=== PATIENT | female | born 1970 | race Caucasian/White ===

== ENCOUNTER 2019-06-24 11:39 | Inpatient (IN) ==
[2019-06-24 13:55] LABS: Basophils # (auto) 0.03 K/uL (0-0.2); Basophils % (auto) 0.4 %; Eosinophils # (auto) 0.46 K/uL (0-0.5); Eosinophils % (auto) 5.5 %; Hematocrit (blood only) 34.9 % (37-47); Hemoglobin 10.5 g/dL (12.0-16.0); Immature Granulocytes # (auto) 0.01 K/uL (0.00-0.02); Immature Granulocytes % (auto) 0.1 %; Lymphocytes # (auto) 1.53 K/uL (1.2-3.4); Lymphocytes % (auto) 18.3 %; Mean Corpuscular Hemoglobin 22.9 pg (25-34); Mean Corpuscular Hgb Conc 30.1 g/dL (32-36); Mean Corpuscular Volume 76.2 fL (80-100); Mean Platelet Volume 10.5 fL (7.4-10.4); Monocytes # (auto) 0.45 K/uL (0.11-0.59); Monocytes % (auto) 5.4 %; Neutrophils # (auto) 5.87 K/uL (1.4-6.5); Neutrophils % (auto) 70.3 %; Platelet Count 291 K/uL (130-400); RDW Standard Deviation 50.5 fL (36.4-46.3); Red Blood Count 4.58 M/uL (4.2-5.4); White Blood Count 8.35 K/uL (4.8-10.8)
[2019-06-24 14:18] LABS: Acetaminophen < 2 ug/ml (10-30); Alanine Aminotransferase 73 U/L (12-78); Albumin Level 3.9 gm/dl (3.4-5.0); Aspartate Aminotransferase 28 U/L (15-37); BUN Creatinine Ratio 13.6 (10-20); Blood Urea Nitrogen 12 mg/dl (7-18); Calcium 9.7 mg/dl (8.5-10.1); Carbon Dioxide 25 mmol/L (21-32); Chloride 106 mmol/L (98-107); Est GFR (Non-African American) 79.3; Glucose 81 mg/dl (70-99); Potassium 4.1 mmol/L (3.5-5.1); Salicylate < 1.7 mg/dl (2.8-20); Sodium 137 mmol/L (136-145)
[2019-06-24 14:20] LABS: Appearance Urine Clear (Clear); Bacteria Urine Automated Negative (Negative); Bilirubin Urine Negative (Negative); Blood Urine Negative (Negative); Color Urine Yellow; Epithelial Cell Urine Auto >30 /lpf (0-5); Glucose Urine UA Negative (Negative); Ketones Urine Negative (Negative); Leukocyte Esterase Urine Trace (Negative); Nitrite Urine Negative (Negative); Protein Urine Negative (Negative); RBC Urine Automated 0-4 /hpf (0-4); Specific Gravity Urine 1.008 (1.000-1.030); Urobilinogen Urine Negative (Negative); pH Urine 5.5 (4.5-7.5)
[2019-06-24 14:28] LABS: Albumin Globulin Ratio 0.7 (0.9-2); Alkaline Phosphatase 72 U/L (45-117); Bilirubin,Total 0.4 mg/dl (0.2-1); Globulin 5.3 gm/dl (2.5-4.0); Thyroid Stimulating Hormone 0.987 uIu/ml (0.300-4.500); Total Protein 9.2 gm/dl (6.4-8.2)
[2019-06-24 14:28] LABS: Amphetamines+Metham, Urine Neg (Neg); Barbiturates, Urine Neg (Neg); Benzodiazepine, Urine Neg (Neg); Cocaine, Urine Neg (Neg); MDMA (Ecstacy), Urine Neg (Neg); Methadone, Urine Neg (Neg); Opiate, Urine Neg (Neg); Phencyclidine, Urine Neg (Neg)
--- NOTE | 2019-06-24 15:30 | CT Scan Report ---
CT head/brain wo con CLINICAL HISTORY: 49 years-old Female presenting with ams. TECHNIQUE: Multidetector CT imaging of the head was performed without the use of intravenous contrast . IV contrast: None. One or more dose lowering techniques were used consistent with the principles of ALARA (as low as reasonably achievable), including automatic exposure control, mA or kV adjustment t o individual patient size, and/or use of iterative reconstruction. COMPARISON: None. CT DOSE (mGy.cm): The estimated cumulative dose is 537.48 mGy.cm. FINDINGS: Stave Block Roller topogram: Unremarkable. Ventricles and sulci normal in size. No hemorrhage. Brain parenchyma normal in appearance with preser pop pulido-white differentiation. No acute territorial infarct. No mass effect or midline shift. No ext ra-axial fluid collection. Paranasal sinuses and mastoid air cells clear. Calvarium intact. IMPRESSION: 1. No acute intracranial abnormality. ACT 112: Negative or not required by law. Electronically signed by: Simon Dodd M.D. 06/24/2019 3:28 PM
[2019-06-24 15:56] LABS: Pregnancy Test, Serum Negative (Negative)
--- NOTE | 2019-06-24 18:18 | Emergency Department Note ---
Entered by Jillian Miguel acting as a scribe for Denis Cabral History of Present Illness General Chief complaint: Mental Health Evaluation Stated complaint: mhid Time Seen by Provider: 06/24/19 12:49 Source: patient and other (psych case briefer) History of Present Illness Onset (ago): day(s) (today) Location: head Pain Consistency: + other (episode) Quality: + other (mental health) Associated symptoms: + denies other symptoms (recent falls, being assaulting, suicidal ideations, homicidal ideations, feeling depressed, feeling anxious, change in sleep, feeling guilty, changes in energy level, changes in appetite ) and + other (loss of interest in things that previously gave her dylan, difficulty concentrating) The patient is a 49 year old female who presents to the Emergency Room for a mental health evaluation. Per the psych case briefer, the patient was found by a property director of restaurants petting their horse. She states that when the patient was tara roached, she was crying one minute and laughing the next. She reports that the property director of restaurants called police, but the patient ended up leaving before they arrived. She states that the patient was then found by police [place] [address] She states that when they approached her, they spent an hour with her just trying to get her name. She reports that she kept making statements to the officers such as the world would be better off without me and my family would be better off if they were . The psych case briefer notes that she has a history of depression due to her recently losing her stable job. She states that the patient and her family recently moved back from [facility] as well. She states that she told her that it was a huge mistake in marrying him and told her 10 year old son that he was her biggest mistake of her life. The psych case briefer states that she is here on a warrant as police are concerned about her behaviors. She notes that the family is concerned as well and wants her to get treatment, but thinks she will deny. The patient states that today she was just out for a walk when police came up and started harassing her. She states that she believes that they did it because she was [place], but they want to make it private as there are too many cars that drive too fast on it. She states that they are just trying to protect farm lands and are doing it by having her be removed from this community farm. The patient states that she just wants to help the animals and that 0 is the [place] of love. She notes that 0 could also be the start of a new beginning or part of a tennis match. The patient complains of loss of i nterest in things that previously gave her dylan, difficulty concentrating, and auditory hallucinations, but wont let say what they are saying. She notes that she just has a hard time figuring out what to focus on. The patient denies recent falls, being assaulting, suicidal ideations, homicidal ideations, feeling depressed, feeling anxious, change in sleep, feeling guilty, changes in energy level, and changes in appetite. Home Medications Home Medications Medication Instructions Recorded Confirmed Type No Known Home Medications 06/24/19 06/24/19 History Allergies Allergy/AdvReac Type Severity Reaction Status Date / Time Unable to Assess Allergy Unverified 06/24/19 13:13 Past Med/Surg History Medical History Depression Family History Other No significant family history Social History marital status: Current Living Situation: Spouse current occupational status: unemployed Feels Safe at Home: Yes Smoking Status: Never smoker Review of Systems See HPI for pertinent positives & negatives. and A total of 10 systems reviewed and were otherwise negative Physical Exam Vital Signs Vital Signs - 24 hr 06/24/19 11:40 06/24/19 13:45 06/24/19 15:28 Temperature 36.6 C Temperature Source Oral Pulse Rate 71 Pulse Rate [Finger] 66 72 Respiratory Rate 16 16 20 Respiratory Effort / Characteristics Non-Labored Non-Labored Non-Labored Spontaneous Respiratory Depth Normal Normal Normal Respiratory Pattern Regular Blood Pressure 134/104 H Blood Pressure [Right Arm] 125/90 137/90 Blood Pressure Mean 114 Blood Pressure Mean [Right Arm] 101 105 Pulse Oximetry 100 99 100 Oxygen Delivery Method Room Air Room Air Room Air Sepsis Recent Fever Within 48 Hours No Sepsis New/Unexplained Change in Mental Status No Sepsis Action Taken by Nursing No Action Required 06/24/19 18:02 Temperature Temperature Source Pulse Rate Pulse Rate [Finger] 73 Respiratory Rate 20 Respiratory Effort / Characteristics Non-Labored Spontaneous Respiratory Depth Normal Respiratory Pattern Regular Blood Pressure Blood Pressure [Right Arm] 107/77 Blood Pressure Mean Blood Pressure Mean [Right Arm] 87 Pulse Oximetry 97 Oxygen Delivery Method Room Air Sepsis Recent Fever Within 48 Hours Sepsis New/Unexplained Change in Mental Status Sepsis Action Taken by Nursing GENERAL: The patient gives some of her history in Bahamian and some in Icelandic, which she then translates to Bahamian. She is oriented to person, place, and time. She appears well-developed and well-nourished. She does not appear distressed. HENT: Exam performed. - Head: Normocephalic and atraumatic. - Right Ear: External ear normal. No mastoid tenderness. - Left Ear: External ear normal. No mastoid tenderness. - Mouth/Throat: The oropharynx is clear and moist. No trismus in the jaw. No dental abscesses or uvula swelling. No oropharyngeal exudate or tonsillar abscesses. EYES: Conjunctivae and EOM are normal. Pupils are equal, round, and reactive to light. Right eye exhibits no discharge. Left eye exhibits no discharge. No scleral icterus. NECK: Normal range of motion. Neck supple. No JVD present. No spinous process tenderness present. No carotid bruit present. No rigidity. No tracheal deviation and normal range of motion present. No Brudzinski's sign and no Kernig's sign noted. CV: Normal rate, regular rhythm, normal heart sounds and intact distal pulses. There is no peripheral edema. Palpable radial pulses bue. PULM/CHEST: Effort normal and breath sounds normal. No respiratory distress. No stridor. She has no wheezes. She has no rales. Chest Wall: She exhibits no tenderness. ABD: The abdomen is soft. Bowel sounds are normal. She has no distension. No mass is present. There is no tenderness. There is no rebound, no guarding, no Bravo's sign and no tenderness at McBurney's point. Rovsig negative MUSC/SKEL: Normal range of motion. There is no peripheral edema, tenderness or deformity. LYMPH: No cervical adenopathy. NEURO: She is alert and oriented to person, place, and time. She has normal strength. No cranial nerve deficit or sensory deficit. Coordination and gait normal. GCS eye subscore is 4. GCS verbal subscore is 5. GCS motor subscore is 6. cerbellar tests wnl. SKIN: Skin is warm and dry. She is not diaphoretic. PSYCH: Bizzare affect. Auditory hallucinations. Course Course 1327: The patient was evaluated in room A7. A complete history and physical exam was performed. 143: The psych case briefer states that the patient has been having increasingly bizarre behaviors, including hanging her wedding rings next to a deer carcass and then yelling at police why it isn't buried. The family members also informed her that she has been having increasing headaches. We will obtain a CT of the head given her headaches and her bizarre behavior. 1816: Vital signs stable. Patient medically cleared. Awaiting psychiatric placement. 302 signed by me. Case signed out to Dr. campos. Medical Decision Making Medical Records Attestation: I reviewed the patient's medical records. Home Medications Current Medication List: was personally reviewed by me Laboratory Data Attestation: I reviewed the patient's lab results. Result diagrams: 06/24/19 13:39 06/24/19 13:39 Lab Results 06/24/19 06/24/19 06/24/19 Range/Units 13:37 13:39 13:39 WBC 8.35 (4.8-10.8) K/uL RBC 4.58 (4.2-5.4) M/uL Hgb 10.5 L (12.0-16.0) g/dL Hct 34.9 L (37-47) % MCV 76.2 L (80-100) fL MCH 22.9 L (25-34) pg MCHC 30.1 L (32-36) g/dL RDW Std Deviation 50.5 H (36.4-46.3) fL RDW Coeff of Keyla 18.0 H (11.5-14.5) % Plt Count 291 (130-400) K/uL MPV 10.5 H (7.4-10.4) fL Immature Gran % (Auto) 0.1 % Neut % (Auto) 70.3 % Lymph % (Auto) 18.3 % [place] % (Auto) 5.4 % Eos % (Auto) 5.5 % Baso % (Auto) 0.4 % Immature Gran # (Auto) 0.01 (0.00-0.02) K/uL Neut # (Auto) 5.87 (1.4-6.5) K/uL Lymph # (Auto) 1.53 (1.2-3.4) K/uL [place] # (Auto) 0.45 (0.11-0.59) K/uL Eos # (Auto) 0.46 (0-0.5) K/uL Baso # (Auto) 0.03 (0-0.2) K/uL Sodium 137 (136-145) mmol/L Potassium 4.1 (3.5-5.1) mmol/L Chloride 106 (98-107) mmol/L Carbon Dioxide 25 (21-32) mmol/L Anion Gap 7.0 (3-11) BUN 12 (7-18) mg/dl Creatinine 0.85 (0.6-1.2) mg/dl Est Cr Clr Drug Dosing Not Reportable Est GFR ( Amer) 92.0 Est GFR (Non-Af Amer) 79.3 BUN/Creatinine Ratio 13.6 (10-20) Glucose 81 (70-99) mg/dl Calcium 9.7 (8.5-10.1) mg/dl Total Bilirubin 0.4 (0.2-1) mg/dl AST 28 (15-37) U/L ALT 73 (12-78) U/L Alkaline Phosphatase 72 (45-117) U/L Total Protein 9.2 H (6.4-8.2) gm/dl Albumin 3.9 (3.4-5.0) gm/dl Globulin 5.3 H (2.5-4.0) gm/dl Albumin/Globulin Ratio 0.7 L (0.9-2) TSH 0.987 (0.300-4.500) uIu/ml HCG, Qual Negative (Negative) Urine Color Urine Appearance (Clear) Urine pH (4.5-7.5) Ur Specific Andrew (1.000-1.030) Urine Protein (Negative) Urine Glucose (UA) (Negative) Urine Ketones (Negative) Urine Blood (Negative) Urine Nitrite (Negative) Urine Bilirubin (Negative) Urine Urobilinogen (Negative) Ur Leukocyte Esterase (Negative) Urine WBC (Auto) (0-5) /hpf Urine RBC (Auto) (0-4) /hpf U Hyaline Cast (Auto) (0-5) /lpf U Epithel Cells (Auto) (0-5) /lpf Urine Bacteria (Auto) (Negative) Salicylates (2.8-20) mg/dl Urine Opiates Screen (Neg) Ur Methadone, Qual (Neg) Acetaminophen (10-30) ug/ml Urine Barbiturates (Neg) Ur Phencyclidine (PCP) (Neg) U Amphetamin/Meth Scrn (Neg) MDMA (Ecstasy) Screen (Neg) U Benzodiazepines Scrn (Neg) Ur Cocaine Metabolite (Neg) U Marijuana (THC) Screen (Neg) Ethyl Alcohol mg/dL (0-3) mg/dl 06/24/19 06/24/19 06/24/19 Range/Units 13:39 13:39 13:50 WBC (4.8-10.8) K/uL RBC (4.2-5.4) M/uL Hgb (12.0-16.0) g/dL Hct (37-47) % MCV (80-100) fL MCH (25-34) pg MCHC (32-36) g/dL RDW Std Deviation (36.4-46.3) fL RDW Coeff of Keyla (11.5-14.5) % Plt Count (130-400) K/uL MPV (7.4-10.4) fL Immature Gran % (Auto) % Neut % (Auto) % Lymph % (Auto) % [place] % (Auto) % Eos % (Auto) % Baso % (Auto) % Immature Gran # (Auto) (0.00-0.02) K/uL Neut # (Auto) (1.4-6.5) K/uL Lymph # (Auto) (1.2-3.4) K/uL [place] # (Auto) (0.11-0.59) K/uL Eos # (Auto) (0-0.5) K/uL Baso # (Auto) (0-0.2) K/uL Sodium (136-145) mmol/L Potassium (3.5-5.1) mmol/L Chloride (98-107) mmol/L Carbon Dioxide (21-32) mmol/L Anion Gap (3-11) BUN (7-18) mg/dl Creatinine (0.6-1.2) mg/dl Est Cr Clr Drug Dosing Est GFR ( Amer) Est GFR (Non-Af Amer) BUN/Creatinine Ratio (10-20) Glucose (70-99) mg/dl Calcium (8.5-10.1) mg/dl Total Bilirubin (0.2-1) mg/dl AST (15-37) U/L ALT (12-78) U/L Alkaline Phosphatase (45-117) U/L Total Protein (6.4-8.2) gm/dl Albumin (3.4-5.0) gm/dl Globulin (2.5-4.0) gm/dl Albumin/Globulin Ratio (0.9-2) TSH (0.300-4.500) uIu/ml HCG, Qual (Negative) Urine Color Urine Appearance (Clear) Urine pH (4.5-7.5) Ur Specific Andrew (1.000-1.030) Urine Protein (Negative) Urine Glucose (UA) (Negative) Urine Ketones (Negative) Urine Blood (Negative) Urine Nitrite (Negative) Urine Bilirubin (Negative) Urine Urobilinogen (Negative) Ur Leukocyte Esterase (Negative) Urine WBC (Auto) (0-5) /hpf Urine RBC (Auto) (0-4) /hpf U Hyaline Cast (Auto) (0-5) /lpf U Epithel Cells (Auto) (0-5) /lpf Urine Bacteria (Auto) (Negative) Salicylates < 1.7 L (2.8-20) mg/dl Urine Opiates Screen Neg (Neg) Ur Methadone, Qual Neg (Neg) Acetaminophen < 2 L (10-30) ug/ml Urine Barbiturates Neg (Neg) Ur Phencyclidine (PCP) Neg (Neg) U Amphetamin/Meth Scrn Neg (Neg) MDMA (Ecstasy) Screen Neg (Neg) U Benzodiazepines Scrn Neg (Neg) Ur Cocaine Metabolite Neg (Neg) U Marijuana (THC) Screen Neg (Neg) Ethyl Alcohol mg/dL < 3.0 (0-3) mg/dl 06/24/19 Range/Units 13:50 WBC (4.8-10.8) K/uL RBC (4.2-5.4) M/uL Hgb (12.0-16.0) g/dL Hct (37-47) % MCV (80-100) fL MCH (25-34) pg MCHC (32-36) g/dL RDW Std Deviation (36.4-46.3) fL RDW Coeff of Keyla (11.5-14.5) % Plt Count (130-400) K/uL MPV (7.4-10.4) fL Immature Gran % (Auto) % Neut % (Auto) % Lymph % (Auto) % [place] % (Auto) % Eos % (Auto) % Baso % (Auto) % Immature Gran # (Auto) (0.00-0.02) K/uL Neut # (Auto) (1.4-6.5) K/uL Lymph # (Auto) (1.2-3.4) K/uL [place] # (Auto) (0.11-0.59) K/uL Eos # (Auto) (0-0.5) K/uL Baso # (Auto) (0-0.2) K/uL Sodium (136-145) mmol/L Potassium (3.5-5.1) mmol/L Chloride (98-107) mmol/L Carbon Dioxide (21-32) mmol/L Anion Gap (3-11) BUN (7-18) mg/dl Creatinine (0.6-1.2) mg/dl Est Cr Clr Drug Dosing Est GFR ( Amer) Est GFR (Non-Af Amer) BUN/Creatinine Ratio (10-20) Glucose (70-99) mg/dl Calcium (8.5-10.1) mg/dl Total Bilirubin (0.2-1) mg/dl AST (15-37) U/L ALT (12-78) U/L Alkaline Phosphatase (45-117) U/L Total Protein (6.4-8.2) gm/dl Albumin (3.4-5.0) gm/dl Globulin (2.5-4.0) gm/dl Albumin/Globulin Ratio (0.9-2) TSH (0.300-4.500) uIu/ml HCG, Qual (Negative) Urine Color Yellow Urine Appearance Clear (Clear) Urine pH 5.5 (4.5-7.5) Ur Specific Andrew 1.008 (1.000-1.030) Urine Protein Negative (Negative) Urine Glucose (UA) Negative (Negative) Urine Ketones Negative (Negative) Urine Blood Negative (Negative) Urine Nitrite Negative (Negative) Urine Bilirubin Negative (Negative) Urine Urobilinogen Negative (Negative) Ur Leukocyte Esterase Trace H (Negative) Urine WBC (Auto) 1-5 (0-5) /hpf Urine RBC (Auto) 0-4 (0-4) /hpf U Hyaline Cast (Auto) 1-5 (0-5) /lpf U Epithel Cells (Auto) >30 H (0-5) /lpf Urine Bacteria (Auto) Negative (Negative) Salicylates (2.8-20) mg/dl Urine Opiates Screen (Neg) Ur Methadone, Qual (Neg) Acetaminophen (10-30) ug/ml Urine Barbiturates (Neg) Ur Phencyclidine (PCP) (Neg) U Amphetamin/Meth Scrn (Neg) MDMA (Ecstasy) Screen (Neg) U Benzodiazepines Scrn (Neg) Ur Cocaine Metabolite (Neg) U Marijuana (THC) Screen (Neg) Ethyl Alcohol mg/dL (0-3) mg/dl Imaging Data Radiologist's Impression: Radiology results as stated below per my review and the radiologist's interpretation: CT head/brain wo con CLINICAL HISTORY: 49 years-old Female presenting with ams. TECHNIQUE: Multidetector CT imaging of the head was performed without the use of intravenous contrast. IV contrast: None. One or more dose lowering techniques were used consistent with the principles of ALARA (as low as reasonably achievable), including automatic exposure control, mA or kV adjustment to individual patient size, and/or use of iterative reconstruction. COMPARISON: None. CT DOSE (mGy.cm): The estimated cumulative dose is 537.48 mGy.cm. FINDINGS: Cancer Program Director topogram: Unremarkable. Ventricles and sulci normal in size. No hemorrhage. Brain parenchyma normal in appearance with preserved pulido-white differentiation. No acute territorial infarct. No mass effect or midline shift. No extra-axial fluid collection. Paranasal sinuses and mastoid air cells clear. Calvarium intact. IMPRESSION: 1. No acute intracranial abnormality. ACT 112: Negative or not required by law. Electronically signed by: Simon Dodd M.D. 06/24/2019 3:28 PM Blood Pressure Blood Pressure Findings: Elevated blood pressure Blood Pressure Disposition: elevated BP felt to be situational MDM Narrative Vital signs stable. Patient medically cleared. Awaiting psychiatric placement. 302 signed by me. Case signed out to Dr. campos. Impression & Plan Auditory hallucinations, Acute psychosis Discharge Plan Visit Data Chief Complaint: Mental Health Evaluation Stated Complaint: mhid ED Provider: Denis Cabral Discharge Problem: Auditory hallucinations, Acute psychosis Forms Stand Alone Forms: My [facility], Suicide Prevention Resources Prescriptions Prescriptions: No Action No Known Home Medications RF: 0 The scribe's documentation has been prepared under my direction and personally reviewed by me in its entirety. I confirm that the note above accurately reflects all work, treatment, procedures, and medical decision making performed by me.
[2019-06-24] MEDS ORDERED: MAGNESIUM HYDROXIDE SUSP 30 ML UDC PO PRN (19:12)
[2019-06-24] MEDS ORDERED: SODIUM CHLORIDE 0.65% NA SOLN 45 ML (OCEAN) PRN (19:12)
[2019-06-24] MEDS ORDERED: BISMUTH SUBSALICYLATE PER ML OMNICELL CHARGE PO PRN (19:12)
[2019-06-24] MEDS ORDERED: ALUMINUM/MAGNESIUM SUSP 30 ML UDC PO PRN (19:12)
[2019-06-24] MEDS ORDERED: ACETAMINOPHEN 325 MG TAB PO PRN (19:12)
--- NOTE | 2019-06-25 01:08 | Emergency Department Note ---
ED Visit Note Patient signed out to me at change of shift by Dr. Cabral. This is a 49-year-old female already medically clear, and a 302 for active hallucinations and psychosis. Patient signed out to me awaiting placement. Pt admitted to [facility]. .
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
[2019-06-25] MEDS: ARIPiprazole 10 MG TAB PO SCH (13:23)
--- NOTE | 2019-06-25 18:18 | Communication Note ---
Date of Service: June 25, 2019 Medications over objection: I have personally evaluated Kirsten Coker and find that she is suffering from a serious and persistent mental illness that is only likely to respond to antipsychotic medications. Specific symptoms include delusions of persecution, apparent auditory hallucinations, and severely disorganized thinking and behaviors. She is unlikely to improve to the degree that she can be safely discharged from the hospital without psychiatric medications. Also, she is likely to remain dangerous to herself, and potentially to others if not appropriately medicated. At the same time, the patient is steadfastly refusing psychiatric medications when offered. She also repeatedly says that she will continue to refuse psychiatric medications. It is my finding that medications over the patient's objections are necessary, and I am recommending that she receive intramuscular injections of an antipsychotic medication, such as haloperidol, should she refuse oral antipsychotic medications.
[2019-06-26] MEDS: ARIPiprazole 10 MG TAB PO SCH (14:27)
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
[2019-06-26] MEDS ORDERED: IBUPROFEN 200 MG TAB PO PRN (18:20)
[2019-06-26] MEDS ORDERED: OLANZapine 10 MG/2.1 ML SDV IM PRN (22:13)
[2019-06-26] MEDS ORDERED: OLANZapine 5 MG TABLET PO SCH (22:15)
[2019-06-27] MEDS ORDERED: OLANZapine 5 MG TABLET PO ONE (10:43)
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
[2019-06-27] MEDS: OLANZapine 5 MG TABLET PO SCH (21:38)
--- NOTE | 2019-06-28 08:12 | Psychiatric Progress Note ---
Date of Service June 28, 2019 Impression / Recommendations Impression This 49-year-old woman was brought to the emergency department by the police after a property target setter reported that the patient was on private property and was attempting to pet a horse, behaving bizarrely, and not making sense. Reportedly, the police noted that the patient appeared to have a altered mental status and, accordingly, brought her in on a 302 warrant. She is clearly delusional and markedly disorganized in her thinking/speech, at times approaching word salad. There is no known substance abuse history, and family indicate that she has had psychotic symptoms for at least the past 4 to 5 years, with a brief period of treatment in [place], the details of which are unknown. 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 She has repeatedly stated that she will refuse to take any psychiatric medications and does not intend to cooperate in any way with treatment. She has been uncooperative, will not engage in treatment, and is insisting that she be released from the hospital. Medication over objection was started yesterday, and she has received 3 doses of olanzapine 5 mg. She has a 303 hearing tomorrow. (1) Psychosis: 06/25/19 -The patient harbors a number of delusional beliefs. For example, she asserts that her is having a romantic affair with her mother, even though the patient and her reportedly have been living in [place] for some time now. She asserts that all doctors, including the undersigned, are deliberately trying to "poison" or otherwise engender illness and all of their patients, and none has the goal of treating or curing patients. -She tells us that she will refuse all psychiatric treatment. She has been referred for individual, group, and activity therapy. We will also need family involvement from her and, if she is permitted, her parents. We are encouraging her to cooperate with treatment, but currently the patient's thinking is so disorganized that it may not be practicable. -The most important treatment at this point for the patient will be psychiatric chemotherapy. Aripiprazole 10 mg daily has been ordered. The patient has repeatedly said that she will refuse to take all psychiatric medications when offered, but we will give her an opportunity to reconsider. 06/26 -remains psychotic and so far refusing medication. She was not able to engage in a rational discussion about treatment options/risks/benefits today and is not felt to have the capacity to make her own tx decisions at this time due to her level of psychosis and impaired insight. Appears feeling of sedation associated with medication in past has been barrier. In that regard, the abilify that has been prescribed may be more tolerable, however if she continues to refuse medication we will need to convert to IM formulation med as alternative. Dr Torres has previously documented his assessment of clinical appropriateness for treatment over objection (for indication of psychosis) to which I concur as she is unlikely to improve without antipsychotic treatment and her severely impaired insight and inability to rationally manipulate information impairs her ability to reasonably engage in treatment decisions. -while this does not appears to be first episode of psychosis, unclear what medical w/u for psychosis has occurred previously apart from head CT and screening labs in ER. will continue to expand database and will consider additional medical w/u such as EEG, RPR, copper studies, heavy metals as indicated. 06/27 -Patient remains floridly psychotic, disorganized, paranoid, with escalating behaviors last evening and continued noncompliance with medication recommendations. With small show force this morning she was ultimately willing to take the oral olanzapine 5 mg dose and she will be written for 5 mg twice daily watching for sedation. The common risks and benefits of the medication were reviewed with her however she is not able to rationally consider indication for treatment or consider risks and benefits at this time. -Due to her symptom severity and unlikelihood of improvement without pharmacotherapy, antipsychotic medication treatment over her objection is felt to be necessary and we will utilize intramuscular olanzapine as backup for refusal of oral medication if necessary. 06/28 -Continue olanzapine 5mg bid, with IM backup, and order fasting lipid profile and glucose for baseline on an atypical for tomorrow. -303 involuntary commitment hearing scheduled for tomorrow. -Encourage patient to engage in treatment as able to tolerate. She is not yet appropriate for groups or a family meeting. She may require an involuntary outpatient commitment, as she lacks all insight into her condition and is refusing treatment. Most likely diagnosis at this time is schizophrenia, although mood disorder with psychosis is also in the differential. Head CT in the ER on admission was normal. (2) Auditory hallucinations: 06/25/19 -The patient gives vague responses when ask about perceptual disturbances, but says that she does hear voices that other people do not hearwhile asserting that this is true of everyone, whether or not they realize it. The patient does appear to be responding to internal stimuli and, for example, was observed talking as if to unseen persons by the psychiatrist when he called the patient for the admission examination. -Currently, the patient is saying that she will will refuse all forms of psychiatric medication, other than "[place] peppermint which she can only buy in [place]." The definitive treatment for perceptual disturbances is antipsychotic medications. Within this context, we have ordered aripiprazole 10 mg a day and will titrate as indicated. Medications over objection may need to be ordered given the patient's repeated assertion that she will not agree to take psychiatric medications voluntarily. 06/28 -Patient is refusing to discuss any of her symptoms, has been largely uncooperative since admission. Inventory Assets Strengths: Intelligent. Supportive family. 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 Fond of raising sheep and chickens. Needs: Resolution of her thought disorder. Resolution of psychotic features. Willingness to cooperate with treatment. 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 Collateral information will be gathered.) Previous Psychiatric Hospitalization: No (It must be noted that the patient is not a reliable historian and declines to answer a number of questions regarding previous hospitalizations.) Hopelessness: No Smoker: No Protective Factors Assessment Episcopalian Beliefs: No : Yes Responsible for Young Children: Yes Employed: No Stable Relationships: Yes Supportive Family: Yes Good Rapport with Provider: No Absence of Any Risk Factors Above: No Interval History Identifying Information LEANNE KERR is a 49-year-old F who currently lives in [place] with her parents and 10 year old son, has a history of an unknown psychiatric condition for which she has not been in treatment, and was admitted on 06/24/19 19:13 on a 302 involuntary commitment for psychosis. Chief Complaint "Miserably". Review of Systems Sleep Information Total Hours of Sleep: 8.25 Meal Information Percent Meal Consumed - Breakfast: 75 Percent Meal Consumed - Lunch: 100 Percent Meal Consumed - Dinner: 100 Nutrition Comment: pt asleep Subjective Subjective Patient was seen & assessed and interval progress reviewed with treatment team. Per staff she continued to refuse medications and medication over objection was started yesterday, and she ultimately took olanzapine with a show of force by staff. She has been isolating in her room, cannot tolerate groups or a family meeting. On the day of presentation, she was aggressive at home, yelling, stomping, and picked up a chair and smashed it to the floor. She was incoherent when police attempted to intervene after a property target setter contacted them due to the patient's bizarre behavior, and told police that it would be better if her family were . In the ER she stated that she was already , and reported depression due to marital discord and strained relationship with parents. She endorsed symptoms of low mood, poor appetite, poor sleep, lack of motivation, hopelessness, and worthlessness. She stated her had been cheating on her with her mother, and felt that she was worthless and unable to do anything right. She endorsed auditory hallucinations of voices, but refused to discuss them further. Antipsychotic medication was ordered on admission, but she refused it. She has been argumentative, irritable, and uncooperative since admission, with loose associations, and many complaints about being in the hospital. She has incorporated hospital staff into her delusions, accusing a nurse of having a child by her , and stating that medications are being ordered in order to poison her and make money for health professionals. Collateral information from : He has been with her for 13.5 years, and described her as being to her career. She has lived in [facility] for 30 years, and returned to [place] 2 weeks prior to presentation. Her family believes she had untreated depression after the of her 10-year-old son, and has noticed increased depression and anger recently. 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, but lost her job due to interpersonal difficulties, which was very difficult for her. He first noted psychotic symptoms in fall 2016, when she became paranoid and believed spines and assassins were after her. She is accused her of being unfaithful and of being an assassin, which he denies. shore worker met with her and father and obtained collateral: Patient has had a history of psychosis 4-5 years ago after she lost her job, with paranoia and disorganization, and at one point was prescribed 3 medications which she only took for several months as she was "like a zombie." They did not know what medications these were. She had another episode in 02/2017 with delusions of persecution that her and son were trying to poison her, her electrical devices were being hacked, and used a hammer to smash multiple electronics. Her reported that she has a history of physical aggression towards him and chronic anger problems. They reported that recently, her symptoms have been more severe than ever before, and she has been making statements that the world would be better off without her.. Her said that last month she began to talk about wanting to leave/dysphagia, although it was unclear what she wanted to escape from. She and her son came to [place] to stay with her parents indefinitely, and her came for 2 weeks for the holidays. Her son is going to decide if he wants to stay here for school, or return to [facility]. Her family told her that if she was noncompliant with medications, they would not bring her son in to visit. She was upset about this, stating it was not fair, and that she wants to get and was worried the medication would affect her . She accuses staff and her family of having mental health issues, rather than her. At times she has gone to the front doors and demanded to leave. She has called her family and demanded they come pick her up, and they notified staff. She has been labile, switching from angry to tearful. She often enters the nursing station to make accusations and complaints. She has refused to allow housekeeping to clean her room or remove the garbage, it is refusing to shower, stating she takes only baths. Yesterday she was started on medications over objection, and security was called. She ultimately agreed to oral medication. She refused all groups, and her visited yesterday. On my assessment, she was seen in her room, where she was lying in bed but awake. She states she does not need to be here, and that the police had no right to stop her or bring her to the hospital. She does not believe that she has a mental illness or needs treatment, and initially denies any mental health history, but later admits to being in treatment in the past, but refuses to discuss it further. She believes she is here because "I always take the blame for anything, anytime something's wrong, it's my fault." She says she is spending her time here "wasting time," but when encouraged to participate in treatment, says "I'm not going to participate in any involuntary medication regime." She repeatedly states that we are ruining her vacation, and that she needs to be allowed to leave to spend time with her family. When asked about the concerns her family has expressed about her and changes in her thinking and behavior, she says "I live in [place], came here to see my son's grandparents, if they want to kill me off..." When asked to clarify this statement, she says "you think you are a doctor, but you're not. You're breaking my heart, whether you know it or not." She has many angry complaints about the hospital and the staff, saying "professionals barged into my home and tried to break up my family. You're the one with the problem." She repeatedly complains that she is here against her will, and attempted to explain the involuntary commitment process, including her 303 hearing tomorrow, but she was not receptive, interrupted and responded with unrelated information. Physical Exam Psychiatric Orientation: alert; + uncooperative Apperance: appropriately dressed Casually dressed and leggings and a sweater. Seated in bed in no acute distress. Eye Contact: good eye contact (Glaring, intense, unblinking) Motor Behavior: steady gait and station and no abnormal motor movements Slight delay at times. Angry tone. Affect: + irritable affect and + angry affect; + mood not congruent with affect Mood: + angry mood Thought Process: + tangential thought process and + looseness of associations Often answers with unrelated information Thought Content: + preoccupation (With anger about being here), + paranoid, + delusions and + persecution Answered with unrelated information Answered with unrelated information Cognition: + recent memory not intact and + attention not intact Insight: + severely impaired insight Judgement: + severely impaired judgement Vital Signs (Past 24 Hours) Last Vital Signs Temp 36.7 C 06/28/19 06:49 Pulse 97 H 06/28/19 06:50 Resp 16 06/28/19 06:49 BP 132/80 06/28/19 06:50 Pulse Ox 97 06/24/19 20:18 Results & Data Current Inpatient Medications Current Inpatient Medications: Current Inpatient Medications Acetaminophen (Tylenol) 650 mg PO Q4H PRN PRN Reason: Headache or Minor Fever Stop: 07/24/19 19:11 Al Hydrox/Mg Hydrox/Simethicone (Maalox) 30 ml PO Q4H PRN PRN Reason: GI Upset Stop: 07/24/19 19:11 Bismuth Subsalicylate (Kaopectate) 15 ml PO PRN PRN PRN Reason: Loose Stool Stop: 07/24/19 19:11 Hydroxyzine HCl (Vistaril) 50 mg PO HSZ PRN PRN Reason: Insomnia Stop: 07/24/19 19:11 Hydroxyzine HCl (Vistaril) 25 mg PO Q4H PRN PRN Reason: Anxiety Stop: 07/24/19 19:11 Ibuprofen (Advil) 400 mg PO Q6H PRN PRN Reason: Headache Stop: 07/26/19 18:19 Magnesium Hydroxide (Milk Of Magnesia) 30 ml PO DAILY PRN PRN Reason: Constipation Stop: 07/24/19 19:11 Olanzapine (Zyprexa) 5 mg IM Q6H PRN PRN Reason: psychosis/agitation Stop: 07/26/19 22:14 Olanzapine (Zyprexa) 5 mg PO BID CARLOS Stop: 07/27/19 20:59 Last Admin: 06/27/19 21:38 Dose: 5 mg Documented by: Sodium Chloride (Stanley Nasal) 1 - 2 sprays NA PRN PRN PRN Reason: Nasal Dryness/Congestion Stop: 07/24/19 19:11 Post Discharge Appointments Primary Care Physician Name Of Family Doctor: Chyna Date of Appointment with PCP: 07/01/19 Contact Information Discharge Discharge Address: [address] [place] [address]
[2019-06-28] MEDS: OLANZapine 5 MG TABLET PO SCH ×2 (09:55→21:03)
--- NOTE | 2019-06-29 06:51 | Psychiatric Progress Note ---
Date of Service June 29, 2019 Impression / Recommendations Impression This 49-year-old woman was brought to the emergency department by the police after a property line haul owner operator reported that the patient was on private property and was attempting to pet a horse, behaving bizarrely, and not making sense. Reportedly, the police noted that the patient appeared to have a altered mental status and, accordingly, brought her in on a 302 warrant. She is clearly delusional and markedly disorganized in her thinking/speech, at times approaching word salad. There is no known substance abuse history, and family indicate that she has had psychotic symptoms for at least the past 4 to 5 years, with a brief period of treatment in [place], the details of which are unknown. 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 She has repeatedly stated that she will refuse to take any psychiatric medications and does not intend to cooperate in any way with treatment. She has been uncooperative, will not engage in treatment, and is insisting that she be released from the hospital. Medication over objection was started 06/27, and she has been receiving olanzapine 5 mg bid. She is on a 303 commitment as of 06/29/19. (1) Psychosis: 06/25/19 -The patient harbors a number of delusional beliefs. For example, she asserts that her is having a romantic affair with her mother, even though the patient and her reportedly have been living in [place] for some time now. She asserts that all doctors, including the undersigned, are deliberately trying to "poison" or otherwise engender illness and all of their patients, and none has the goal of treating or curing patients. -She tells us that she will refuse all psychiatric treatment. She has been referred for individual, group, and activity therapy. We will also need family involvement from her and, if she is permitted, her parents. We are encouraging her to cooperate with treatment, but currently the patient's thinking is so disorganized that it may not be practicable. -The most important treatment at this point for the patient will be psychiatric chemotherapy. Aripiprazole 10 mg daily has been ordered. The patient has repeatedly said that she will refuse to take all psychiatric medications when offered, but we will give her an opportunity to reconsider. 06/26 -remains psychotic and so far refusing medication. She was not able to engage in a rational discussion about treatment options/risks/benefits today and is not felt to have the capacity to make her own tx decisions at this time due to her level of psychosis and impaired insight. Appears feeling of sedation associated with medication in past has been barrier. In that regard, the abilify that has been prescribed may be more tolerable, however if she continues to refuse medication we will need to convert to IM formulation med as alternative. Dr Torres has previously documented his assessment of clinical appropriateness for treatment over objection (for indication of psychosis) to which I concur as she is unlikely to improve without antipsychotic treatment and her severely impaired insight and inability to rationally manipulate information impairs her ability to reasonably engage in treatment decisions. -while this does not appears to be first episode of psychosis, unclear what medical w/u for psychosis has occurred previously apart from head CT and screening labs in ER. will continue to expand database and will consider additional medical w/u such as EEG, RPR, copper studies, heavy metals as indicated. 06/27 -Patient remains floridly psychotic, disorganized, paranoid, with escalating behaviors last evening and continued noncompliance with medication recommendations. With small show force this morning she was ultimately willing to take the oral olanzapine 5 mg dose and she will be written for 5 mg twice daily watching for sedation. The common risks and benefits of the medication were reviewed with her however she is not able to rationally consider indication for treatment or consider risks and benefits at this time. -Due to her symptom severity and unlikelihood of improvement without pharmacotherapy, antipsychotic medication treatment over her objection is felt to be necessary and we will utilize intramuscular olanzapine as backup for refusal of oral medication if necessary. 06/28 -Continue olanzapine 5mg bid, with IM backup, and order fasting lipid profile and glucose for baseline on an atypical for tomorrow. -303 involuntary commitment hearing scheduled for tomorrow. -Encourage patient to engage in treatment as able to tolerate. She is not yet appropriate for groups or a family meeting. She may require an involuntary outpatient commitment, as she lacks all insight into her condition and is refusing treatment. Most likely diagnosis at this time is schizophrenia, although mood disorder with psychosis is also in the differential. Head CT in the ER on admission was normal. 06/29 -Fasting labs notable for cholesterol 208. -303 involuntary commitment granted. Patient remains unwilling for referrals for outpatient treatment and will likely need a 304 IO. -Encourage group attendance and participation, continue to provide support and psychoeducation. (2) Auditory hallucinations: 06/25/19 -The patient gives vague responses when ask about perceptual disturbances, but says that she does hear voices that other people do not hearwhile asserting that this is true of everyone, whether or not they realize it. The patient does appear to be responding to internal stimuli and, for example, was observed talking as if to unseen persons by the psychiatrist when he called the patient for the admission examination. -Currently, the patient is saying that she will will refuse all forms of psychiatric medication, other than "[place]oven[place] peppermint which she can only buy in [place]." The definitive treatment for perceptual disturbances is antipsychotic medications. Within this context, we have ordered aripiprazole 10 mg a day and will titrate as indicated. Medications over objection may need to be ordered given the patient's repeated assertion that she will not agree to take psychiatric medications voluntarily. 06/28 -Patient is refusing to discuss any of her symptoms, has been largely uncooperative since admission. (3) Mood disorder: Inventory Assets Strengths: Intelligent. Supportive family. 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 Fond of raising sheep and chickens. Needs: Resolution of her thought disorder. Resolution of psychotic features. Willingness to cooperate with treatment. 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 Collateral information will be gathered.) Previous Psychiatric Hospitalization: No (It must be noted that the patient is not a reliable historian and declines to answer a number of questions regarding previous hospitalizations.) Hopelessness: No Smoker: No Protective Factors Assessment Denominational Beliefs: No : Yes Responsible for Young Children: Yes Employed: No Stable Relationships: Yes Supportive Family: Yes Good Rapport with Provider: No Absence of Any Risk Factors Above: No Interval History Identifying Information LEANNE KERR is a 49-year-old F who currently lives in [place] with her parents and 10 year old son, has a history of psychosis and mood symptoms with unknown past diagnosis and only brief treatment in [facility], not currently in treatment, and was admitted on 06/24/19 19:13 on a 302 involuntary commitment for psychosis with severe disorganization, bizarre and erratic behavior, and statements that she and her family would be better off . She is on a 303 involuntary commitment as of 06/29/19. Chief Complaint "I'm going back to [facility], we're going to be a family in [facility], this is not happening". Review of Systems Sleep Information Total Hours of Sleep: 7 Sleep Comments: pt NPO during the night. pt on q-15 minute checks Meal Information Percent Meal Consumed - Breakfast: 25 Percent Meal Consumed - Lunch: 75 Percent Meal Consumed - Dinner: 100 Nutrition Comment: pt asleep Subjective Subjective Patient was seen & assessed and interval progress reviewed with nursing and social work. Staff report she continues to refuse groups and therapy and isolates in her room, coming out only to complain about being hospitalized. She was able to tolerate a visit with her father last night, and he reported they are not going to bring her son in until she is more stable, as the attempted visit with him the day prior did not go well. Her speech has been more organized but she continues to demonstrate a complete lack of insight into her illness/symptoms and the need for treatment. Spoke with the patient's father who also attended her 303 hearing: he states patient has been irritable over the past several weeks since she arrived from [facility] 06/08/19. Mood has been labile, happy and laughing at times, then abruptly changes to down. She had an anger outburst at home the day of presentation, threw a chair, and abruptly left the house and was gone for hours. They have been very concerned about her and her unpredictable and erratic behavior, and she has been argumentative with multiple family members. She has been up at night and sleeping during the day. She has been disorganized and paranoid, delusional that her was having an affair with her mother, and "flew off the handle" about this - father states there is no basis for this, and she has suspected her of cheating with other women too, which family does not believe is true. Her son is staying with grandparents and starting elementary school here in a week or two. He has an appointment with an commonwealth attorney to get get guardianship of her son while his father is away, and hopes the patient will go along with it. The patient attended her 303 hearing and testified that she didn't know she was trespassing as there were no signs, and "just wanted to go for a walk to clear my head." She interrupted several times during the hearing and at times responded with unrelated information. At one point she reported she was returning to [facility] "to be a family," but then said she and her son were staying with her parents to be close to family. She says "of course people are sick if they're in here, I think the people in the fishbowl are sicker than I am and need help." She repeatedly states she is upset that she is missing time with her family and , as they haven't traveled together in years. She says she is "paying the frank for the best gift we could've given, it's been returned and it can't be given back." Physical Exam Psychiatric Orientation: alert; + uncooperative Apperance: appropriately dressed (wearing the same clothes as yesterday); + inappropriately groomed (hair appears unwashed) Eye Contact: + fair eye contact Motor Behavior: steady gait and station and no abnormal motor movements Speech: normal rate/rhythm/volume of speech interrupts at times, halting speech Affect: + irritable affect Mood: + irritable mood and + angry mood Thought Process: + tangential thought process Thought Content: + paranoid and + persecution Suicidal Thoughts: denies suicidal thoughts Homicidal Thoughts: denies homicidal thoughts does not answer Cognition: language grossly intact Insight: + severely impaired insight Judgement: + severely impaired judgement Vital Signs (Past 24 Hours) Last Vital Signs Temp 36.4 C L 06/29/19 06:39 Pulse 97 H 06/29/19 06:41 Resp 18 06/29/19 06:39 BP 99/68 L 06/29/19 06:41 Pulse Ox 97 06/24/19 20:18 Results & Data Current Inpatient Medications Current Inpatient Medications: Current Inpatient Medications Acetaminophen (Tylenol) 650 mg PO Q4H PRN PRN Reason: Headache or Minor Fever Stop: 07/24/19 19:11 Al Hydrox/Mg Hydrox/Simethicone (Maalox) 30 ml PO Q4H PRN PRN Reason: GI Upset Stop: 07/24/19 19:11 Bismuth Subsalicylate (Kaopectate) 15 ml PO PRN PRN PRN Reason: Loose Stool Stop: 07/24/19 19:11 Hydroxyzine HCl (Vistaril) 50 mg PO HSZ PRN PRN Reason: Insomnia Stop: 07/24/19 19:11 Hydroxyzine HCl (Vistaril) 25 mg PO Q4H PRN PRN Reason: Anxiety Stop: 07/24/19 19:11 Ibuprofen (Advil) 400 mg PO Q6H PRN PRN Reason: Headache Stop: 07/26/19 18:19 Magnesium Hydroxide (Milk Of Magnesia) 30 ml PO DAILY PRN PRN Reason: Constipation Stop: 07/24/19 19:11 Olanzapine (Zyprexa) 5 mg IM Q6H PRN PRN Reason: psychosis/agitation Stop: 07/26/19 22:14 Olanzapine (Zyprexa) 5 mg PO BID CARLOS Stop: 07/27/19 20:59 Last Admin: 06/28/19 21:03 Dose: 5 mg Documented by: Sodium Chloride (Clarion Nasal) 1 - 2 sprays NA PRN PRN PRN Reason: Nasal Dryness/Congestion Stop: 07/24/19 19:11 Post Discharge Appointments Primary Care Physician Name Of Family Doctor: Chyna Date of Appointment with PCP: 07/01/19 Contact Information Discharge Discharge Address: [address] [place] [address]
[2019-06-29 09:02] LABS: Glucose Fasting 91 mg/dl (70-99)
[2019-06-29 09:08] LABS: Chol HDL Ratio 3; Cholesterol 208 mg/dl (0-200); HDL Cholesterol 61 mg/dl; LDL Cholesterol Calculated 129 mg/dl; Triglycerides 92 mg/dl (0-150); VLDL Cholesterol 18 mg/dl
[2019-06-29] MEDS: OLANZapine 5 MG TABLET PO SCH ×2 (10:49→21:35)
[2019-06-30] MEDS: OLANZapine 5 MG TABLET PO SCH ×2 (09:22→20:29)
--- NOTE | 2019-06-30 12:38 | Psychiatric Progress Note ---
Date of Service June 30, 2019 Impression / Recommendations Impression This 49-year-old woman was brought to the emergency department by the police after a property melter clerk reported that the patient was on private property and was attempting to pet a horse, behaving bizarrely, and not making sense. Reportedly, the police noted that the patient appeared to have a altered mental status and, accordingly, brought her in on a 302 warrant. She is clearly delusional and markedly disorganized in her thinking/speech, at times approaching word salad. There is no known substance abuse history, and family indicate that she has had psychotic symptoms for at least the past 4 to 5 years, with a brief period of treatment in [place], the details of which are unknown. 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 She has repeatedly stated that she will refuse to take any psychiatric medications and does not intend to cooperate in any way with treatment. She has been uncooperative, will not engage in treatment, and is insisting that she be released from the hospital. Medication over objection was started 06/27, and she has been receiving olanzapine 5 mg bid. She is on a 303 commitment as of 06/29/19. (1) Psychosis: 06/25/19 -The patient harbors a number of delusional beliefs. For example, she asserts that her is having a romantic affair with her mother, even though the patient and her reportedly have been living in [place] for some time now. She asserts that all doctors, including the undersigned, are deliberately trying to "poison" or otherwise engender illness and all of their patients, and none has the goal of treating or curing patients. -She tells us that she will refuse all psychiatric treatment. She has been referred for individual, group, and activity therapy. We will also need family involvement from her and, if she is permitted, her parents. We are encouraging her to cooperate with treatment, but currently the patient's thinking is so disorganized that it may not be practicable. -The most important treatment at this point for the patient will be psychiatric chemotherapy. Aripiprazole 10 mg daily has been ordered. The patient has repeatedly said that she will refuse to take all psychiatric medications when offered, but we will give her an opportunity to reconsider. 06/26 -remains psychotic and so far refusing medication. She was not able to engage in a rational discussion about treatment options/risks/benefits today and is not felt to have the capacity to make her own tx decisions at this time due to her level of psychosis and impaired insight. Appears feeling of sedation associated with medication in past has been barrier. In that regard, the abilify that has been prescribed may be more tolerable, however if she continues to refuse medication we will need to convert to IM formulation med as alternative. Dr Torres has previously documented his assessment of clinical appropriateness for treatment over objection (for indication of psychosis) to which I concur as she is unlikely to improve without antipsychotic treatment and her severely impaired insight and inability to rationally manipulate information impairs her ability to reasonably engage in treatment decisions. -while this does not appears to be first episode of psychosis, unclear what medical w/u for psychosis has occurred previously apart from head CT and screening labs in ER. will continue to expand database and will consider additional medical w/u such as EEG, RPR, copper studies, heavy metals as indicated. 06/27 -Patient remains floridly psychotic, disorganized, paranoid, with escalating behaviors last evening and continued noncompliance with medication recommendations. With small show force this morning she was ultimately willing to take the oral olanzapine 5 mg dose and she will be written for 5 mg twice da cheryle watching for sedation. The common risks and benefits of the medication were reviewed with her however she is not able to rationally consider indication for treatment or consider risks and benefits at this time. -Due to her symptom severity and unlikelihood of improvement without pharmacotherapy, antipsychotic medication treatment over her objection is felt to be necessary and we will utilize intramuscular olanzapine as backup for refusal of oral medication if necessary. 06/28 -Continue olanzapine 5mg bid, with IM backup, and order fasting lipid profile and glucose for baseline on an atypical for tomorrow. -303 involuntary commitment hearing scheduled for tomorrow. -Encourage patient to engage in treatment as able to tolerate. She is not yet appropriate for groups or a family meeting. She may require an involuntary outpatient commitment, as she lacks all insight into her condition and is refusing treatment. Most likely diagnosis at this time is schizophrenia, although mood disorder with psychosis is also in the differential. Head CT in the ER on admission was normal. 06/29 -Fasting labs notable for cholesterol 208. -303 involuntary commitment granted. Patient remains unwilling for referrals for outpatient treatment and will likely need a 304 IO. -Encourage group attendance and participation, continue to provide support and psychoeducation. 06/30 -continue treatment plan as above (2) Auditory hallucinations: 06/25/19 -The patient gives vague responses when ask about perceptual disturbances, but says that she does hear voices that other people do not hearwhile asserting that this is true of everyone, whether or not they realize it. The patient does appear to be responding to internal stimuli and, for example, was observed talking as if to unseen persons by the psychiatrist when he called the patient for the admission examination. -Currently, the patient is saying that she will will refuse all forms of psychiatric medication, other than "[place] peppermint which she can only buy in [place]." The definitive treatment for perceptual disturbances is antipsychotic medications. Within this context, we have ordered aripiprazole 10 mg a day and will titrate as indicated. Medications over objection may need to be ordered given the patient's repeated assertion that she will not agree to t patricio psychiatric medications voluntarily. 06/28 -Patient is refusing to discuss any of her symptoms, has been largely uncooperative since admission. 06/30 -continue attempting to obtain history of symptoms and reality testing as able to (3) Mood disorder: Inventory Assets Strengths: Intelligent. Supportive family. 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 Fond of raising sheep and chickens. Needs: Resolution of her thought disorder. Resolution of psychotic features. Willingness to cooperate with treatment. 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 Collateral information will be gathered.) Previous Psychiatric Hospitalization: No (It must be noted that the patient is not a reliable historian and declines to answer a number of questions regarding previous hospitalizations.) Hopelessness: No Smoker: No Protective Factors Assessment Congregational Beliefs: No : Yes Responsible for Young Children: Yes Employed: No Stable Relationships: Yes Supportive Family: Yes Good Rapport with Provider: No Absence of Any Risk Factors Above: No Interval History Identifying Information LEANNE KERR is a 49-year-old F who currently lives in [place] with her parents and 10 year old son, has a history of psychosis and mood symptoms with unknown past diagnosis and only brief treatment in [facility], not currently in treatment, and was admitted on 06/24/19 19:13 on a 302 involuntary commitment for psychosis with severe disorganization, bizarre and erratic behavior, and statements that she and her family would be better off . She is on a 303 involuntary commitment as of 06/29/19. Chief Complaint "I am not clinically depressed but am depressed clincally". (meaning "being here against my will makes me depressed") Review of Systems Sleep Information Total Hours of Sleep: 6.25 Sleep Comments: pt NPO during the night. pt on q-15 minute checks Meal Information Percent Meal Consumed - Breakfast: 100 Percent Meal Consumed - Lunch: 100 Percent Meal Consumed - Dinner: 80 Nutrition Comment: pt asleep Subjective Subjective Patient was seen & assessed and interval progress reviewed with nursing. Pt is admitted on a 303 invol commitment converted from a 302 on 06/29. She is upset about being here in the hospital, with feeling that she is not a risk to others or herself and that she is not "mentally ill." She views the psychiatrists as ill for involutary hospitalizing her and that she would not do this to others if the roles were reserved. She would prefer to not take medication as views meds as doping her up. She endorsed taking the zyprexa zydis but not preferring to do so and doesn ot view the medication as potentially benefical. She enodrsed that the only expereinced s/e to date is a negative taste to the medication. She does not answer questions directly and has run on tangential responses to questions that is similar to her own spontaneous speech. She has loosening of associations. She does not directly answer questions about halluincations and instead appears to convert the question to things not liking ("see parking garages where murcia use to be") with her loosening of asociations appearing to impact her ability to answer the question. She does not view herself as paranoid in her thinking or disorganized in her thinking. She appears to be sleeping through the night. She is eating her meals. She indicated that meal time is whenever they feel like it Physical Exam Psychiatric Orientation: alert, cooperative (but loosening of associations and disorganization impacting her cooperation) and + guarded Apperance: appropriately dressed (wearing the same clothes as yesterday), + disheveled and appeared stated age; + inappropriately groomed (hair appears unwashed) Eye Contact: good eye contact (Glaring, intense, unblinking) has a mild stare Motor Behavior: steady gait and station and no abnormal motor movements speech is mildly pressured and decreased latency of onset, lively, clear, tone is frustrated but with a thoughtful quality to it Affect: + labile affect; + mood not congruent with affect frustrated but yet bright affect while talking with a blunted affect when not talking depressed mood over being hospitalizaed Thought Process: + tangential thought process and + looseness of associations; + thought process not linear or logical and + thought association not intact Thought Content: + preoccupation (With anger about being here), + paranoid and + persecution; + delusional Suicidal Thoughts: denies suicidal thoughts Homicidal Thoughts: denies homicidal thoughts did not fuly answer AH or VH question instead loosening of association occurred Cognition: language grossly intact; + recent memory not intact and + attention not intact Estimated Intelligence: + above average estimated intelligence Insight: + severely impaired insight Judgement: + poor judgement Vital Signs (Past 24 Hours) Last Vital Signs Temp 36.4 C L 06/30/19 06:57 Pulse 69 06/30/19 06:57 Resp 18 06/30/19 06:57 BP 116/75 06/30/19 06:57 Pulse Ox 97 06/24/19 20:18 Results & Data Current Inpatient Medications Current Inpatient Medications: Current Inpatient Medications Acetaminophen (Tylenol) 650 mg PO Q4H PRN PRN Reason: Headache or Minor Fever Stop: 07/24/19 19:11 Al Hydrox/Mg Hydrox/Simethicone (Maalox) 30 ml PO Q4H PRN PRN Reason: GI Upset Stop: 07/24/19 19:11 Bismuth Subsalicylate (Kaopectate) 15 ml PO PRN PRN PRN Reason: Loose Stool Stop: 07/24/19 19:11 Hydroxyzine HCl (Vistaril) 50 mg PO HSZ PRN PRN Reason: Insomnia Stop: 07/24/19 19:11 Hydroxyzine HCl (Vistaril) 25 mg PO Q4H PRN PRN Reason: Anxiety Stop: 07/24/19 19:11 Ibuprofen (Advil) 400 mg PO Q6H PRN PRN Reason: Headache Stop: 07/26/19 18:19 Magnesium Hydroxide (Milk Of Magnesia) 30 ml PO DAILY PRN PRN Reason: Constipation Stop: 07/24/19 19:11 Olanzapine (Zyprexa) 5 mg IM Q6H PRN PRN Reason: psychosis/agitation Stop: 07/26/19 22:14 Olanzapine (Zyprexa) 5 mg PO BID CARLOS Stop: 07/27/19 20:59 Last Admin: 06/30/19 09:22 Dose: 5 mg Documented by: Sodium Chloride ([place] Nasal) 1 - 2 sprays NA PRN PRN PRN Reason: Nasal Dryness/Congestion Stop: 07/24/19 19:11 Post Discharge Appointments Primary Care Physician Name Of Family Doctor: Chyna Date of Appointment with PCP: 07/01/19 Contact Information Discharge Discharge Address: [address] [place] [address]
--- NOTE | 2019-07-01 08:43 | Psychiatric Progress Note ---
Date of Service July 01, 2019 Impression / Recommendations Impression This 49-year-old woman was brought to the emergency department by the police after a property electronic intelligence officer reported that the patient was on private property and was attempting to pet a horse, behaving bizarrely, and not making sense. Reportedly, the police noted that the patient appeared to have a altered mental status and, accordingly, brought her in on a 302 warrant. She is clearly delusional and markedly disorganized in her thinking/speech, at times approaching word salad. There is no known substance abuse history, and family indicate that she has had psychotic symptoms for at least the past 4 to 5 years, with a brief period of treatment in [place], the details of which are unknown. 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 She has repeatedly stated that she will refuse to take any psychiatric medications and does not intend to cooperate in any way with treatment. She has been uncooperative, will not engage in treatment, and is insisting that she be released from the hospital. Medication over objection was started 06/27, and she has been receiving olanzapine 5 mg bid. She is on a 303 commitment as of 06/29/19. (1) Psychosis: 06/25/19 -The patient harbors a number of delusional beliefs. For example, she asserts that her is having a romantic affair with her mother, even though the patient and her reportedly have been living in [place] for some time now. She asserts that all doctors, including the undersigned, are deliberately trying to "poison" or otherwise engender illness and all of their patients, and none has the goal of treating or curing patients. -She tells us that she will refuse all psychiatric treatment. She has been referred for individual, group, and activity therapy. We will also need family involvement from her and, if she is permitted, her parents. We are encouraging her to cooperate with treatment, but currently the patient's thinking is so disorganized that it may not be practicable. -The most important treatment at this point for the patient will be psychiatric chemotherapy. Aripiprazole 10 mg daily has been ordered. The patient has repeatedly said that she will refuse to take all psychiatric medications when offered, but we will give her an opportunity to reconsider. 06/26 -remains psychotic and so far refusing medication. She was not able to engage in a rational discussion about treatment options/risks/benefits today and is not felt to have the capacity to make her own tx decisions at this time due to her level of psychosis and impaired insight. Appears feeling of sedation associated with medication in past has been barrier. In that regard, the abilify that has been prescribed may be more tolerable, however if she continues to refuse medication we will need to convert to IM formulation med as alternative. Dr Torres has previously documented his assessment of clinical appropriateness for treatment over objection (for indication of psychosis) to which I concur as she is unlikely to improve without antipsychotic treatment and her severely impaired insight and inability to rationally manipulate information impairs her ability to reasonably engage in treatment decisions. -while this does not appears to be first episode of psychosis, unclear what medical w/u for psychosis has occurred previously apart from head CT and screening labs in ER. will continue to expand database and will consider additional medical w/u such as EEG, RPR, copper studies, heavy metals as indicated. 06/27 -Patient remains floridly psychotic, disorganized, paranoid, with escalating behaviors last evening and continued noncompliance with medication recommendations. With small show force this morning she was ultimately willing to take the oral olanzapine 5 mg dose and she will be written for 5 mg twice da cheryle watching for sedation. The common risks and benefits of the medication were reviewed with her however she is not able to rationally consider indication for treatment or consider risks and benefits at this time. -Due to her symptom severity and unlikelihood of improvement without pharmacotherapy, antipsychotic medication treatment over her objection is felt to be necessary and we will utilize intramuscular olanzapine as backup for refusal of oral medication if necessary. 06/28 -Continue olanzapine 5mg bid, with IM backup, and order fasting lipid profile and glucose for baseline on an atypical for tomorrow. -303 involuntary commitment hearing scheduled for tomorrow. -Encourage patient to engage in treatment as able to tolerate. She is not yet appropriate for groups or a family meeting. She may require an involuntary outpatient commitment, as she lacks all insight into her condition and is refusing treatment. Most likely diagnosis at this time is schizophrenia, although mood disorder with psychosis is also in the differential. Head CT in the ER on admission was normal. 06/29 -Fasting labs notable for cholesterol 208. -303 involuntary commitment granted. Patient remains unwilling for referrals for outpatient treatment and will likely need a 304 IOC. -Encourage group attendance and participation, continue to provide support and psychoeducation. 06/30 -continue treatment plan as above 07/01 - Pt continues to be disorganized and seemingly paranoid. Recommendation is for further titration of olanzapine to better target symptoms of psychosis - Will titrate HS dose of olanzapine to 7.5mg, consider further titration as indicated/tolerated - Will likely pursue a 304 IOC - Continue to encourage group participation, patient reminded that group en gagement is factored into discharge considerations (2) Auditory hallucinations: 06/25/19 -The patient gives vague responses when ask about perceptual disturbances, but says that she does hear voices that other people do not hearwhile asserting that this is true of everyone, whether or not they realize it. The patient does appear to be responding to internal stimuli and, for example, was observed talking as if to unseen persons by the psychiatrist when he called the patient for the admission examination. -Currently, the patient is saying that she will will refuse all forms of psychiatric medication, other than "[place] peppermint which she can only buy in [place]." The definitive treatment for perceptual disturbances is antipsychotic medications. Within this context, we have ordered aripiprazole 10 mg a day and will titrate as indicated. Medications over objection may need to be ordered given the patient's repeated assertion that she will not agree to take psychiatric medications voluntarily. 06/28 -Patient is refusing to discuss any of her symptoms, has been largely uncooperative since admission. 06/30 -continue attempting to obtain history of symptoms and reality testing as able to (3) Mood disorder: Inventory Assets Strengths: Intelligent. Supportive family. 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 Fond of raising sheep and chickens. Needs: Resolution of her thought disorder. Resolution of psychotic features. Willingness to cooperate with treatment. 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 Collateral information will be gathered.) Previous Psychiatric Hospitalization: No (It must be noted that the patient is not a reliable historian and declines to answer a number of questions regarding previous hospitalizations.) Hopelessness: No Smoker: No Protective Factors Assessment Druze Beliefs: No : Yes Responsible for Young Children: Yes Employed: No Stable Relationships: Yes Supportive Family: Yes Good Rapport with Provider: No Absence of Any Risk Factors Above: No Interval History Identifying Information LEANNE KERR is a 49-year-old F who currently lives in [place] with her parents and 10 year old son, has a history of psychosis and mood symptoms with unknown past diagnosis and only brief treatment in [facility], not currently in treatment, and was admitted on 06/24/19 19:13 on a 302 involuntary commitment for psychosis with severe disorganization, bizarre and erratic behavior, and statements that she and her family would be better off . She is on a 303 involuntary commitment as of 06/29/19. Chief Complaint "I need to go home. We came here for a vacation, and to spend time with family. This is a stressful environment and I need to go home." Review of Systems Notes Constitutional: reports dizziness, patient believes is related to the olanzapine Cardiovascular: denied Respiratory: denied Gastrointestinal: reporting nausea, patient believes is related to the olanzapine Neurological: denied Psychiatric: denies symptoms other than stated above Total of at least 10 systems reviewed, pertinent positives as above and in HPI. Sleep Information Total Hours of Sleep: 6 Sleep Comments: pt NPO during the night. pt on q-15 minute checks Meal Information Percent Meal Consumed - Breakfast: 100 Percent Meal Consumed - Lunch: 100 Percent Meal Consumed - Dinner: 100 Nutrition Comment: pt asleep Subjective Subjective Patient was seen & assessed and interval progress reviewed with treatment team. Staff report the patient was increasingly paranoid last evening, questioning her food and medications. She remains reluctantly compliant with PO medications. Pt reportedly continues to be tangential. Remains in [facility] due to ongoing delusions and psychosis. Pt was seen today to assess progress since admission. Patient states that she is "not well" and verbalizes numerous complaints related to her involuntary admission. Patient admits she is frustrated as she is to be spending time with her family, not receiving "psychiatric treatment that I do not need, and having medications force down my throat." Patient continues to be rather tangential and remains somewhat disorganized, as she jumps around to a variety of different topics. Patient informs this provider that she has a "natural approach" to medical treatment and states "I never wanted to be a drug addict, but you have made me into one now." Pt reports complaints of nausea and dizziness with olanzapine, but does not answer this provider's inquiry of whether symptoms have improved over time. Pt informs this provider that she was trying to avoid these medications as she and her are hoping to have another child and she does not want to be on medications. Attempts were made to explain to patient the concerns related to her behavior at admission, but she is unable to tolerate that conversation at this time. Pt continued to verbalize need for discharge today. She was informed this was not our present plan, and was offered titration of olanzapine, which she is uninterested in. Pt does not provide any thoughts on presence of SI or hallucinations, as she is too preoccupied with requesting discharge. Physical Exam Psychiatric Orientation: alert, oriented x 3 and + guarded; + uncooperative Apperance: appropriately dressed, + disheveled and appeared stated age Eye Contact: good eye contact Motor Behavior: no abnormal motor movements (observed while sitting on bed) Speech: normal rate/rhythm/volume of speech (hyperverbal) Affect: + irritable affect and mood congruent with affect Mood: + irritable mood ("I don't need these services, I need to go home") Thought Process: + tangential thought process and + perseveration; + thought process not clear or coherent Thought Content: + preoccupation (with not needing psychiatric treatment, focused on discharge), + paranoid and + delusions Insight: + impaired insight Judgement: + impaired judgement Vital Signs (Past 24 Hours) Last Vital Signs Temp 36.5 C 07/01/19 06:45 Pulse 71 07/01/19 06:50 Resp 16 07/01/19 06:45 BP 106/73 07/01/19 06:50 Pulse Ox 97 06/24/19 20:18 Results & Data Current Inpatient Medications Current Inpatient Medications: Current Inpatient Medications Acetaminophen (Tylenol) 650 mg PO Q4H PRN PRN Reason: Headache or Minor Fever Stop: 07/24/19 19:11 Al Hydrox/Mg Hydrox/Simethicone (Maalox) 30 ml PO Q4H PRN PRN Reason: GI Upset Stop: 07/24/19 19:11 Bismuth Subsalicylate (Kaopectate) 15 ml PO PRN PRN PRN Reason: Loose Stool Stop: 07/24/19 19:11 Hydroxyzine HCl (Vistaril) 50 mg PO HSZ PRN PRN Reason: Insomnia Stop: 07/24/19 19:11 Hydroxyzine HCl (Vistaril) 25 mg PO Q4H PRN PRN Reason: Anxiety Stop: 07/24/19 19:11 Ibuprofen (Advil) 400 mg PO Q6H PRN PRN Reason: Headache Stop: 07/26/19 18:19 Magnesium Hydroxide (Milk Of Magnesia) 30 ml PO DAILY PRN PRN Reason: Constipation Stop: 07/24/19 19:11 Olanzapine (Zyprexa) 5 mg IM Q6H PRN PRN Reason: psychosis/agitation Stop: 07/26/19 22:14 Olanzapine (Zyprexa) 5 mg PO BID CARLOS Stop: 07/27/19 20:59 Last Admin: 06/30/19 20:29 Dose: 5 mg Documented by: Sodium Chloride ([place] Nasal) 1 - 2 sprays NA PRN PRN PRN Reason: Nasal Dryness/Congestion Stop: 07/24/19 19:11 Post Discharge Appointments Primary Care Physician Name Of Family Doctor: Chyna Date of Appointment with PCP: 07/01/19 Contact Information Discharge Discharge Address: [address] [place] [address]
[2019-07-01] MEDS: OLANZapine 5 MG TABLET PO SCH (09:51)
[2019-07-01] MEDS ORDERED: OLANZapine 5 MG TABLET PO SCH (22:00)
[2019-07-02] MEDS: OLANZapine 5 MG TABLET PO SCH (08:35)
--- NOTE | 2019-07-02 11:27 | Psychiatric Progress Note ---
Date of Service July 02, 2019 Impression / Recommendations Impression This 49-year-old woman was brought to the emergency department by the police after a property armature winder automotive reported that the patient was on private property and was attempting to pet a horse, behaving bizarrely, and not making sense. Reportedly, the police noted that the patient appeared to have a altered mental status and, accordingly, brought her in on a 302 warrant. She is clearly delusional and markedly disorganized in her thinking/speech, at times approaching word salad. There is no known substance abuse history, and family indicate that she has had psychotic symptoms for at least the past 4 to 5 years, with a brief period of treatment in [place], the details of which are unknown. 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 She has repeatedly stated that she will refuse to take any psychiatric medications and does not intend to cooperate in any way with treatment. She has been uncooperative, will not engage in treatment, and is insisting that she be released from the hospital. The patient has become more cooperative, but con tinues to have essentially no insight into her illnessother than to say that she sometimes has "mood swings" that she considers to be "normal." She has been adherent with prescribed recommendations, namely olanzapine, but insists that she feels strongly that this is not a necessary treatment and that she does not agree that she needs "western medicines." With time, the patient's thinking has become less disorganized, and she has been generally more pleasant, cooperative and trusting. However, she continues to harbor the insistent belief that the staff are simply keeping her here and "playing a game" in order to enrich themselves, financially, and she seems to be totally unable to accept explanations to the contrary. As last week, we see sudden mood shifts that range from low level anger, 2 episodes of mirth, 2 brief tearfulness. However, we are not seeing evidence of flight of ideas, pressured speech, or increased energy. Our assessment is that the patient is slowly responding to treatment. The difficulty is that the patient appears to have not gained significant insight into her illness and aftercare arrangements, under the circumstances, will be difficult. Many of the patient's presenting features are consistent with a diagnosis of schizophrenia, but there also appears to be a significant mood component. It was noted by the patient's that she was referred to as "typhoon lady" in [place] while working in the [employer] business, and in the hospital she has been periodically tearful. Accordingly, we are entertaining the diagnosis of schizoaffective disorder, bipolar type. (1) Psychosis: 06/25/19 -The patient harbors a number of delusional beliefs. For example, she asserts that her is having a romantic affair with her mother, even though the patient and her reportedly have been living in [place] for some time now. She asserts that all doctors, including the undersigned, are deliberately trying to "poison" or otherwise engender illness and all of their patients, and none has the goal of treating or curing patients. -She tells us that she will refuse all psychiatric treatment. She has been r eferred for individual, group, and activity therapy. We will also need family involvement from her and, if she is permitted, her parents. We are encouraging her to cooperate with treatment, but currently the patient's thinking is so disorganized that it may not be practicable. -The most important treatment at this point for the patient will be psychiatric chemotherapy. Aripiprazole 10 mg daily has been ordered. The patient has repeatedly said that she will refuse to take all psychiatric medications when offered, but we will give her an opportunity to reconsider. 06/26 -remains psychotic and so far refusing medication. She was not able to engage in a rational discussion about treatment options/risks/benefits today and is not felt to have the capacity to make her own tx decisions at this time due to her level of psychosis and impaired insight. Appears feeling of sedation associated with medication in past has been barrier. In that regard, the abilify that has been prescribed may be more tolerable, however if she continues to refuse medication we will need to convert to IM formulation med as alternative. Dr Torres has previously documented his assessment of clinical appropriateness for treatment over objection (for indication of psychosis) to which I concur as she is unlikely to improve without antipsychotic treatment and her severely impaired insight and inability to rationally manipulate information impairs her ability to reasonably engage in treatment decisions. -while this does not appears to be first episode of psychosis, unclear what medical w/u for psychosis has occurred previously apart from head CT and screening labs in ER. will continue to expand database and will consider additional medical w/u such as EEG, RPR, copper studies, heavy metals as i ndicated. 06/27 -Patient remains floridly psychotic, disorganized, paranoid, with escalating behaviors last evening and continued noncompliance with medication recommendations. With small show force this morning she was ultimately willing to take the oral olanzapine 5 mg dose and she will be written for 5 mg twice daily watching for sedation. The common risks and benefits of the medication we re reviewed with her however she is not able to rationally consider indication for treatment or consider risks and benefits at this time. -Due to her symptom severity and unlikelihood of improvement without pharmacotherapy, antipsychotic medication treatment over her objection is felt to be necessary and we will utilize intramuscular olanzapine as backup for refusal of oral medication if necessary. 06/28 -Continue olanzapine 5mg bid, with IM backup, and order fasting lipid profile and glucose for baseline on an atypical for tomorrow. -303 involuntary commitment hearing scheduled for tomorrow. -Encourage patient to engage in treatment as able to tolerate. She is not yet appropriate for groups or a family meeting. She may require an involuntary outpatient commitment, as she lacks all insight into her condition and is refusing treatment. Most likely diagnosis at this time is schizophrenia, although mood disorder with psychosis is also in the differential. Head CT in the ER on admission was normal. 06/29 -Fasting labs notable for cholesterol 208. -303 involuntary commitment granted. Patient remains unwilling for referrals for outpatient treatment and will likely need a 304 IOC. -Encourage group attendance and participation, continue to provide support and psychoeducation. 06/30 -continue treatment plan as above 2 - Pt continues to be disorganized and seemingly paranoid. Recommendation is for further titration of olanzapine to better target symptoms of psychosis - Will titrate HS dose of olanzapine to 7.5mg, consider further titration as indicated/tolerated - Will likely pursue a 304 IOC - Continue to encourage group participation, patient reminded that group engagement is factored into discharge considerations. 07/02 -The patient's thinking remains disorganized, but from the perspective of a 1 week absence I am able to observe improvement in the patient's thought processes. -No fixed delusional material is identified today. The patient does appear to remain somewhat disorganized. We are not prepared to say that someone who questions the presence of a "prophet mode of" in association with healthcare is delusional, but the patient uses terms such as "guinea pig" and "trained monkey" when she talks about the way she is treated in the hospital, and also asserts that the hospital is deliberately trying to make her symptomatic. -Our assessment is that the patient has responded favorably to olanzapine. We will increase the dose starting this evening to a dose of olanzapine 5 mg in the morning and 10 mg at bedtime. Present on Admission?: Yes (2) Auditory hallucinations: 06/25/19 -The patient gives vague responses when ask about perceptual disturbances, but says that she does hear voices that other people do not hearwhile asserting that this is true of everyone, whether or not they realize it. The patient does appear to be responding to internal stimuli and, for example, was observed talking as if to unseen persons by the psychiatrist when he called the patient for the admission examination. -Currently, the patient is saying that she will will refuse all forms of psychiatric medication, other than "[place] peppermint which she can only buy in [place]." The definitive treatment for perceptual disturbances is antipsychotic medications. Within this context, we have ordered aripiprazole 10 mg a day and will titrate as indicated. Medications over objection may need to be ordered given the patient's repeated assertion that she will not agree to take psychiatric medications voluntarily. 06/28 -Patient is refusing to discuss any of her symptoms, has been largely uncooperative since admission. 06/30 -continue attempting to obtain history of symptoms and reality testing as able to 07/02 -The patient reports that she is not experiencing any perceptual disturbances. We remained somewhat suspicious that she may be responding because the patient will periodically stop mid-sentence, stares straight into space for a matter of 10 to 30 seconds, and then make a statement that appears to be unrelated to anything else she had been saying. Present on Admission?: Yes (3) Mood disorder: 07/02 -Patient does demonstrate some degree of emotional lability. However, both her most prominent symptoms remain disorganized thinking and disorganized behaviors. She does tend to make somewhat grandiose statements, but does not harbor grandiose delusional beliefs. Instead, she tends towards paranoia, and, for example, today tells me that she will refuse to use the Internet because of "bad things" that can happen to you if you exposure self to computers." She was also reluctant to sit anywhere near a computer during the interview. The patient is adamant that she does not want additional medications. We suggested the possible addition of an antidepressant, but the patient insists that she is not depressed and only needs "freedom" and "naturalistic treatments." Present on Admission?: Yes Inventory Assets Strengths: Intelligent. Supportive family. 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 Fond of raising sheep and chickens. Needs: Resolution of her thought disorder. Resolution of psychotic features. Willingness to cooperate with treatment. 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 Collateral information will be gathered.) Previous Psychiatric Hospitalization: No (It must be noted that the patient is not a reliable historian and declines to answer a number of questions regarding previous hospitalizations.) Hopelessness: No Smoker: No Protective Factors Assessment Mormon Beliefs: No : Yes Responsible for Young Children: Yes Employed: No Stable Relationships: Yes Supportive Family: Yes Good Rapport with Provider: No Absence of Any Risk Factors Above: No Interval History Identifying Information LEANNE KERR is a 49-year-old F who currently lives in [place] with her parents and 10 year old son, has a history of psychosis and mood symptoms with unknown past diagnosis and only brief treatment in [facility], not currently in treatment, and was admitted on 06/24/19 19:13 on a 302 involuntary commitment for psychosis with severe disorganization, bizarre and erratic behavior, and statements that she and her family would be better off . She is on a 303 involuntary commitment as of 06/29/19. Chief Complaint "I'm a guinea pig. I need to go home." Review of Systems Sleep Information Total Hours of Sleep: 8 Sleep Comments: pt NPO during the night. pt on q-15 minute checks Meal Information Percent Meal Consumed - Breakfast: 100 Percent Meal Consumed - Lunch: 100 Percent Meal Consumed - Dinner: 100 Nutrition Comment: pt asleep Subjective Subjective Patient was seen & assessed and interval progress reviewed with treatment team. I met individually with the patient in order to assess her current mental status, evaluate her response to treatment, coordinate any necessary changes in the patient's treatment regimen with the patient, and address issues, questions and concerns that may arise. The patient began by letting me know, as she had a week ago, that she does not feel that she needs to be in the hospital and that there is nothing wrong with her. She focused on a litany of complaints about the hospital, including the sense that she is being condescended to and made "act like a trained monkey." After exploring her feelings regarding these complaints asking for specific examples, 1 of which is that she is asked to report how much of her breakfast she has eaten, I focused the patient's attention on the subject of life and [place]. Within this context, the patient appeared to be reality oriented and, for example, was able to cogently discuss certain aspects of the [place] industry and business, as well as the various stressors that she and her have had in association with adapting to [place] culture. However, without external structure and support the patient tended to be tangential and disorganizedalthough I was able to tell the patient that I noticed a significant improvement since last week. (I had not seen the patient in a week.) The patient tells me that she strongly objects to taking medication, and says that the primary reason is that she "[does] not know what is in it" and says that she is only interested in "naturalistic interventions." She does allow at 1 point that she has experienced mood swings and says that she feels that rest would help address the mood swings. However, she quickly neutralizes the statement by saying, "my mood changes are no different than anyone else's. They are normal." Patient was also able to talk about the difficulty of giving in [place]. She had no specific complaints about her medications other than noted above. Among the patient's complaints isan assertion that the hospital and his staff has deliberately "ruined" what should have been a happy family Wendy. When she was asked if she knew whether her parents and her felt that she needed to be in the hospital (they do) the patient stared ahead for at least 30 seconds and then said, "they do not really know me. I am from a different culture." Physical Exam Psychiatric Orientation: oriented x 3 Apperance: appropriately dressed and appropriately groomed Appears younger than stated age. Eye Contact: good eye contact Motor Behavior: steady gait and station Speech: normal rate/rhythm/volume of speech The patient's speech is delivered at a normal rate and volume, but is somewhat measured and there remained periodic gaps between questions and responses. Affect: + labile affect The patient quickly shifted from beings fairly bright to becoming tearful, and then to expressing anger, all without external stimuli. "I would say my mood is 1/0, but you cannot divide by 0, except in outer space." She does say that she is said to be in the hospital and says that she resents missing what otherwise would have been a "wonderful family Wendy." Thought Process: + tangential thought process and + looseness of associations All of the patient's thinking is tighter than that which was observed last week, she can become fairly loose when not provided with external structure. No fixed delusional beliefs were identified today. The patient said several times "on being very careful what I tell people now." She does say that she believes that the hospital and at staff are keeping her here as a way of making "more money." Suicidal Thoughts: denies suicidal thoughts Homicidal Thoughts: denies homicidal thoughts Hallucinations: no auditory hallucinations Cognition: recent memory grossly intact, remote memory grossly intact and sarita guage grossly intact Patient had some difficulty attending and focusing. She often interrupted a question or observation by the bellows tester to make an unrelated statement. She does, however, remembers specific terms that she had used during an interview that had occurred a week ago Estimated Intelligence: + above average estimated intelligence Insight: + poor insight The patient vacillates between asserting that there is nothing wrong with her and that she is simply "a philosophical person," and telling us that she has "mood swings." She also seems to vaguely recognize her need for treatment, but asserts that she needs "naturalistic treatments such as "rest" and "healthy food" and certain herbs. Judgement: + poor judgement Vital Signs (Past 24 Hours) Last Vital Signs Temp 36.6 C 07/02/19 06:00 Pulse 77 07/02/19 06:00 Resp 16 07/02/19 06:00 BP 118/79 07/02/19 06:00 Pulse Ox 97 06/24/19 20:18 Results & Data Current Inpatient Medications Current Inpatient Medications: Current Inpatient Medications Acetaminophen (Tylenol) 650 mg PO Q4H PRN PRN Reason: Headache or Minor Fever Stop: 07/24/19 19:11 Al Hydrox/Mg Hydrox/Simethicone (Maalox) 30 ml PO Q4H PRN PRN Reason: GI Upset Stop: 07/24/19 19:11 Bismuth Subsalicylate (Kaopectate) 15 ml PO PRN PRN PRN Reason: Loose Stool Stop: 07/24/19 19:11 Hydroxyzine HCl (Vistaril) 50 mg PO HSZ PRN PRN Reason: Insomnia Stop: 07/24/19 19:11 Hydroxyzine HCl (Vistaril) 25 mg PO Q4H PRN PRN Reason: Anxiety Stop: 07/24/19 19:11 Ibuprofen (Advil) 400 mg PO Q6H PRN PRN Reason: Headache Stop: 07/26/19 18:19 Magnesium Hydroxide (Milk Of Magnesia) 30 ml PO DAILY PRN PRN Reason: Constipation Stop: 07/24/19 19:11 Olanzapine (Zyprexa) 5 mg IM Q6H PRN PRN Reason: psychosis/agitation Stop: 07/26/19 22:14 Olanzapine (Zyprexa) 5 mg PO QAM CARLOS Stop: 08/01/19 08:59 Last Admin: 07/02/19 08:35 Dose: 5 mg Documented by: Olanzapine (Zyprexa) 10 mg PO HS CARLOS Stop: 08/01/19 21:59 Sodium Chloride ([place] Nasal) 1 - 2 sprays NA PRN PRN PRN Reason: Nasal Dryness/Congestion Stop: 07/24/19 19:11 Post Discharge Appointments Primary Care Physician Name Of Family Doctor: Chyna Date of Appointment with PCP: 07/01/19 Contact Information Discharge Discharge Address: [address] [place] [address]
[2019-07-02] MEDS: OLANZapine 10 MG TAB PO SCH (20:39)
[2019-07-03] MEDS: OLANZapine 5 MG TABLET PO SCH (10:13)
--- NOTE | 2019-07-03 11:56 | Psychiatric Progress Note ---
Date of Service July 03, 2019 Impression / Recommendations Impression This 49-year-old woman was brought to the emergency department by the police after a property customer service voice reported that the patient was on private property and was attempting to pet a horse, behaving bizarrely, and not making sense. Reportedly, the police noted that the patient appeared to have a altered mental status and, accordingly, brought her in on a 302 warrant. She is clearly delusional and markedly disorganized in her thinking/speech, at times approaching word salad. There is no known substance abuse history, and family indicate that she has had psychotic symptoms for at least the past 4 to 5 years, with a brief period of treatment in [place], the details of which are unknown. 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 Our assessment is that the patient is slowly responding to treatment. Likely schizoaffective disorder, bipolar type. (1) Psychosis: 06/25/19 -The patient harbors a number of delusional beliefs. For example, she asserts that her is having a romantic affair with her mother, even though the patient and her reportedly have been living in [place] for some time now. She asserts that all doctors, including the undersigned, are deliberately trying to "poison" or otherwise engender illness and all of their patients, and none has the goal of treating or curing patients. -She tells us that she will refuse all psychiatric treatment. She has been referred for individual, group, and activity therapy. We will also need family involvement from her and, if she is permitted, her parents. We are encouraging her to cooperate with treatment, but currently the patient's thinking is so disorganized that it may not be practicable. -The most important treatment at this point for the patient will be psychiatric chemotherapy. Aripiprazole 10 mg daily has been ordered. The patient has repeatedly said that she will refuse to take all psychiatric medications when offered, but we will give her an opportunity to reconsider. 06/26 -remains psychotic and so far refusing medication. She was not able to engage in a rational discussion about treatment options/risks/benefits today and is not felt to have the capacity to make her own tx decisions at this time due to her level of psychosis and impaired insight. Appears feeling of sedation associated with medication in past has been barrier. In that regard, the abilify that has been prescribed may be more tolerable, however if she continues to refuse medication we will need to convert to IM formulation med as alternative. Dr Torres has previously documented his assessment of clinical appropriateness for treatment over objection (for indication of psychosis) to which I concur as she is unlikely to improve without antipsychotic treatment and her severely impaired insight and inability to rationally manipulate information impairs her ability to reasonably engage in treatment decisions. -while this does not appears to be first episode of psychosis, unclear what medical w/u for psychosis has occurred previously apart from head CT and screening labs in ER. will continue to expand database and will consider additional medical w/u such as EEG, RPR, copper studies, heavy metals as in dicated. 06/27 -Patient remains floridly psychotic, disorganized, paranoid, with escalating behaviors last evening and continued noncompliance with medication recommendations. With small show force this morning she was ultimately willing to take the oral olanzapine 5 mg dose and she will be written for 5 mg twice daily watching for sedation. The common risks and benefits of the medication were reviewed with her however she is not able to rationally consider indication for treatment or consider risks and benefits at this time. -Due to her symptom severity and unlikelihood of improvement without pharmacotherapy, antipsychotic medication treatment over her objection is felt to be necessary and we will utilize intramuscular olanzapine as backup for refusal of oral medication if necessary. 06/28 -Continue olanzapine 5mg bid, with IM backup, and order fasting lipid profile and glucose for baseline on an atypical for tomorrow. -303 involuntary commitment hearing scheduled for tomorrow. -Encourage patient to engage in treatment as able to tolerate. She is not yet appropriate for groups or a family meeting. She may require an involuntary outpatient commitment, as she lacks all insight into her condition and is refusing treatment. Most likely diagnosis at this time is schizophrenia, although mood disorder with psychosis is also in the differential. Head CT in the ER on admission was normal. 06/29 -Fasting labs notable for cholesterol 208. -303 involuntary commitment granted. Patient remains unwilling for referrals for outpatient treatment and will likely need a 304 IOC. -Encourage group attendance and participation, continue to provide support and psychoeducation. 06/30 -continue treatment plan as above 07/01 - Pt continues to be disorganized and seemingly paranoid. Recommendation is for further titration of olanzapine to better target symptoms of psychosis - Will titrate HS dose of olanzapine to 7.5mg, consider further titration as indicated/tolerated - Will likely pursue a 304 IO - Continue to encourage group participation, patient reminded that group engagement is factored into discharge considerations. 07/02 -The patient's thinking remains disorganized, but from the perspective of a 1 week absence I am able to observe improvement in the patient's thought processes. -No fixed delusional material is identified today. The patient does appear to remain somewhat disorganized. We are not prepared to say that someone who questions the presence of a "prophet mode of" in association with healthcare is delusional, but the patient uses terms such as "guinea pig" and "trained monkey" when she talks about the way she is treated in the hospital, and also asserts that the hospital is deliberately trying to make her symptomatic. -Our assessment is that the patient has responded favorably to olanzapine. We will increase the dose starting this evening to a dose of olanzapine 5 mg in the morning and 10 mg at bedtime. (2) Auditory hallucinations: 06/25/19 -The patient gives vague responses when ask about perceptual disturbances, but says that she does hear voices that other people do not hearwhile asserting that this is true of everyone, whether or not they realize it. The patient does appear to be responding to internal stimuli and, for example, was observed talking as if to unseen persons by the psychiatrist when he called the patient for the admission examination. -Currently, the patient is saying that she will will refuse all forms of psychiatric medication, other than "[place] peppermint which she can only buy in [place]." The definitive treatment for perceptual disturbances is antipsychotic medications. Within this context, we have ordered aripiprazole 10 mg a day and will titrate as indicated. Medications over objection may need to be ordered given the patient's repeated assertion that she will not agree to take psychiatric medications voluntarily. 06/28 -Patient is refusing to discuss any of her symptoms, has been largely uncooperative since admission. 06/30 -continue attempting to obtain history of symptoms and reality testing as able to 07/02 -The patient reports that she is not experiencing any perceptual disturbances. We remained somewhat suspicious that she may be responding because the patient will periodically stop mid-sentence, stares straight into space for a matter of 10 to 30 seconds, and then make a statement that appears to be unrelated to anything else she had been saying. (3) Mood disorder: /3 -Patient does demonstrate some degree of emotional lability. However, both her most prominent symptoms remain disorganized thinking and disorganized behaviors. She does tend to make somewhat grandiose statements, but does not harbor grandiose delusional beliefs. Instead, she tends towards paranoia, and, for example, today tells me that she will refuse to use the Internet because of "bad things" that can happen to you if you exposure self to computers." She was also reluctant to sit anywhere near a computer during the interview. The patient is adamant that she does not want additional medications. We suggested the possible addition of an antidepressant, but the patient insists that she is not depressed and only needs "freedom" and "naturalistic treatments." Inventory Assets Strengths: Intelligent. Supportive family. 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 Fond of raising sheep and chickens. Needs: Resolution of her thought disorder. Resolution of psychotic features. Willingness to cooperate with treatment. Risk Factors Assessment Male: No : Yes Do You Have Access To A Gun?: No Health Problems: No Mental Health Diagnoses: Yes Substance Use Disorders: No Previous Attempt: No Family History of Suicide: No (It must be noted that the patient is considered to be an unreliable vp biology. Collateral information will be gathered.) Previous Psychiatric Hospitalization: No (It must be noted that the patient is not a reliable historian and declines to answer a number of questions regarding previous hospitalizations.) Hopelessness: No Smoker: No Protective Factors Assessment Mandaen Beliefs: No : Yes Responsible for Young Children: Yes Employed: No Stable Relationships: Yes Supportive Family: Yes Good Rapport with Provider: No Absence of Any Risk Factors Above: No Interval History Identifying Information LEANNE KERR is a 49-year-old F who currently lives in [place] with her parents and 10 year old son, has a history of psychosis and mood symptoms with unknown past diagnosis and only brief treatment in [facility], not currently in treatment, and was admitted on 06/24/19 19:13 on a 302 involuntary commitment for psychosis with severe disorganization, bizarre and erratic behavior, and statements that she and her family would be better off . She is on a 303 involuntary commitment as of 06/29/19. Chief Complaint "this place is making me worse". Review of Systems Sleep Information Total Hours of Sleep: 7 Sleep Comments: pt on q-15 minute checks Meal Information Percent Meal Consumed - Breakfast: 50 Percent Meal Consumed - Lunch: 100 Percent Meal Consumed - Dinner: 50 Nutrition Comment: pt asleep Subjective Subjective Patient was seen & assessed and interval progress reviewed with nursing and social work. quite tangential, started by saying that group causes atomic bombs to go off then quite labile/tearful about stay. Expressed paranoia that I am conspiring with drug companies around her stay and wishes she never returned to [place]. Particularly guarded when I asked about her son, seems to have some understanding that he is starting school here and will remain with her parents while she continues treatment. Reluctantly taking medication. Physical Exam Psychiatric Orientation: alert, oriented to place and + guarded Apperance: + disheveled Eye Contact: + poor eye contact Motor Behavior: no abnormal motor movements Speech: normal rate/rhythm/volume of speech Affect: + depressed affect, + tearful affect and + irritable affect Mood: + dysphoric mood Thought Process: + tangential thought process Thought Content: + paranoid and + delusions Suicidal Thoughts: denies suicidal thoughts Homicidal Thoughts: denies homicidal thoughts Hallucinations: no auditory hallucinations and no visual hallucinations Cognition: + remote memory not intact and + attention not intact Estimated Intelligence: consistent with education level Insight: + poor insight Judgement: + poor judgement Vital Signs (Past 24 Hours) Last Vital Signs Temp 36.5 C 07/03/19 06:43 Pulse 81 07/03/19 06:43 Resp 18 07/03/19 06:43 BP 115/80 07/03/19 06:43 Pulse Ox 97 06/24/19 20:18 Results & Data Current Inpatient Medications Current Inpatient Medications: Current Inpatient Medications Acetaminophen (Tylenol) 650 mg PO Q4H PRN PRN Reason: Headache or Minor Fever Stop: 07/24/19 19:11 Al Hydrox/Mg Hydrox/Simethicone (Maalox) 30 ml PO Q4H PRN PRN Reason: GI Upset Stop: 07/24/19 19:11 Bismuth Subsalicylate (Kaopectate) 15 ml PO PRN PRN PRN Reason: Loose Stool Stop: 07/24/19 19:11 Hydroxyzine HCl (Vistaril) 50 mg PO HSZ PRN PRN Reason: Insomnia Stop: 07/24/19 19:11 Hydroxyzine HCl (Vistaril) 25 mg PO Q4H PRN PRN Reason: Anxiety Stop: 07/24/19 19:11 Ibuprofen (Advil) 400 mg PO Q6H PRN PRN Reason: Headache Stop: 07/26/19 18:19 Magnesium Hydroxide (Milk Of Magnesia) 30 ml PO DAILY PRN PRN Reason: Constipation Stop: 07/24/19 19:11 Olanzapine (Zyprexa) 5 mg IM Q6H PRN PRN Reason: psychosis/agitation Stop: 07/26/19 22:14 Olanzapine (Zyprexa) 5 mg PO QAM CARLOS Stop: 08/01/19 08:59 Last Admin: 07/03/19 10:13 Dose: 5 mg Documented by: Olanzapine (Zyprexa) 10 mg PO HS CARLOS Stop: 08/01/19 21:59 Last Admin: 07/02/19 20:39 Dose: 10 mg Documented by: Sodium Chloride (Tate Nasal) 1 - 2 sprays NA PRN PRN PRN Reason: Nasal Dryness/Congestion Stop: 07/24/19 19:11 Mental Health & Subst Abuse Tx Psychiatrist Name of Psychiatrist: Antonia Castellon PA-C, [facility] Psychiatrist's Date of Appointment with Psychiatrist: 07/26/19 Time of Appointment with Psychiatrist: 1pm Pay Per Click Strategist Name of Pay Per Click Strategist: U Phone Number for Pay Per Click Strategist: [phone] Post Discharge Appointments Primary Care Physician Name Of Family Doctor: Chyna Date of Appointment with PCP: 07/01/19 Contact Information Discharge Discharge Address: [address] [place] [address]
[2019-07-03] MEDS: OLANZapine 10 MG TAB PO SCH (21:37)
[2019-07-04] MEDS: OLANZapine 5 MG TABLET PO SCH (09:49)
--- NOTE | 2019-07-04 12:16 | Psychiatric Progress Note ---
Date of Service July 04, 2019 Impression / Recommendations Impression This 49-year-old woman was brought to the emergency department by the police after a property credit officer reported that the patient was on private property and was attempting to pet a horse, behaving bizarrely, and not making sense. Reportedly, the police noted that the patient appeared to have a altered mental status and, accordingly, brought her in on a 302 warrant. She is clearly delusional and markedly disorganized in her thinking/speech, at times approaching word salad. There is no known substance abuse history, and family indicate that she has had psychotic symptoms for at least the past 4 to 5 years, with a brief period of treatment in [place], the details of which are unknown. Our assessment is that the patient is slowly responding to treatment. Likely schizoaffective disorder, bipolar type. (1) Psychosis: 06/25/19 -The patient harbors a number of delusional beliefs. For example, she asserts that her is having a romantic affair with her mother, even though the patient and her reportedly have been living in [place] for some time now. She asserts that all doctors, including the undersigned, are deliberately trying to "poison" or otherwise engender illness and all of their patients, and none has the goal of treating or curing patients. -She tells us that she will refuse all psychiatric treatment. She has been referred for individual, group, and activity therapy. We will also need family involvement from her and, if she is permitted, her parents. We are encouraging her to cooperate with treatment, but currently the patient's thinking is so disorganized that it may not be practicable. -The most important treatment at this point for the patient will be psychiatric chemotherapy. Aripiprazole 10 mg daily has been ordered. The patient has repeatedly said that she will refuse to take all psychiatric medications when offered, but we will give her an opportunity to reconsider. 06/26 -remains psychotic and so far refusing medication. She was not able to engage in a rational discussion about treatment options/risks/benefits today and is not felt to have the capacity to make her own tx decisions at this time due to her level of psychosis and impaired insight. Appears feeling of sedation associated with medication in past has been barrier. In that regard, the abilify that has been prescribed may be more tolerable, however if she continues to refuse medication we will need to convert to IM formulation med as alternative. Dr Torres has previously documented his assessment of clinical appropriateness for treatment over objection (for indication of psychosis) to which I concur as she is unlikely to improve without antipsychotic treatment and her severely impaired insight and inability to rationally manipulate information impairs her ability to reasonably engage in treatment decisions. -while this does not appears to be first episode of psychosis, unclear what medical w/u for psychosis has occurred previously apart from head CT and screening labs in ER. will continue to expand database and will consider additional medical w/u such as EEG, RPR, copper studies, heavy metals as indicated. 06/27 -Patient remains floridly psychotic, disorganized, paranoid, with escalating behaviors last evening and continued noncompliance with medication recommendations. With small show force this morning she was ultimately willing to take the oral olanzapine 5 mg dose and she will be written for 5 mg twice daily watching for sedation. The common risks and benefits of the medication were reviewed with her however she is not able to rationally consider indication for treatment or consider risks and benefits at this time. -Due to her symptom severity and unlikelihood of improvement without pharmacotherapy, antipsychotic medication treatment over her objection is felt to be necessary and we will utilize intramuscular olanzapine as backup for refusal of oral medication if necessary. 06/28 -Continue olanzapine 5mg bid, with IM backup, and order fasting lipid profile and glucose for baseline on an atypical for tomorrow. -303 involuntary commitment hearing scheduled for tomorrow. -Encourage patient to engage in treatment as able to tolerate. She is not yet appropriate for groups or a family meeting. She may require an involuntary outpatient commitment, as she lacks all insight into her condition and is refusing treatment. Most likely diagnosis at this time is schizophrenia, although mood disorder with psychosis is also in the differential. Head CT in the ER on admission was normal. 06/29 -Fasting labs notable for cholesterol 208. -303 involuntary commitment granted. Patient remains unwilling for referrals for outpatient treatment and will likely need a 304 IOC. -Encourage group attendance and participation, continue to provide support and psychoeducation. 06/30 -continue treatment plan as above 07/01 - Pt continues to be disorganized and seemingly paranoid. Recommendation is for further titration of olanzapine to better target symptoms of psychosis - Will titrate HS dose of olanzapine to 7.5mg, consider further titration as indicated/tolerated - Will likely pursue a 304 IOC - Continue to encourage group participation, patient reminded that group engagement is factored into discharge considerations. 07/02 -The patient's thinking remains disorganized, but from the perspective of a 1 week absence I am able to observe improvement in the patient's thought processes. -No fixed delusional material is identified today. The patient does appear t o remain somewhat disorganized. We are not prepared to say that someone who questions the presence of a "prophet mode of" in association with healthcare is delusional, but the patient uses terms such as "guinea pig" and "trained monkey" when she talks about the way she is treated in the hospital, and also asserts that the hospital is deliberately trying to make her symptomatic. -Our assessment is that the patient has responded favorably to olanzapine. We will increase the dose starting this evening to a dose of olanzapine 5 mg in the morning and 10 mg at bedtime. (2) Auditory hallucinations: 06/25/19 -The patient gives vague responses when ask about perceptual disturbances, but says that she does hear voices that other people do not hearwhile asserting that this is true of everyone, whether or not they realize it. The patient does appear to be responding to internal stimuli and, for example, was observed talking as if to unseen persons by the psychiatrist when he called the patient for the admission examination. -Currently, the patient is saying that she will will refuse all forms of psychiatric medication, other than "[place] peppermint which she can only buy in [place]." The definitive treatment for perceptual disturbances is antipsychotic medications. Within this context, we have ordered aripiprazole 10 mg a day and will titrate as indicated. Medications over objection may need to be ordered given the patient's repeated assertion that she will not agree to take psychiatric medications voluntarily. 06/28 -Patient is refusing to discuss any of her symptoms, has been largely uncooperative since admission. 06/30 -continue attempting to obtain history of symptoms and reality testing as able to 07/02 -The patient reports that she is not experiencing any perceptual disturbances. We remained somewhat suspicious that she may be responding because the patient will periodically stop mid-sentence, stares straight into space for a matter of 10 to 30 seconds, and then make a statement that appears to be unrelated to anything else she had been saying. (3) Mood disorder: 1/3 -Patient does demonstrate some degree of emotional lability. However, both her most prominent symptoms remain disorganized thinking and disorganized behaviors. She does tend to make somewhat grandiose statements, but does not harbor grandiose delusional beliefs. Instead, she tends towards paranoia, and, for example, today tells me that she will refuse to use the Internet because of "bad things" that can happen to you if you exposure self to computers." She was also reluctant to sit anywhere near a computer during the interview. The patient is adamant that she does not want additional medications. We suggested the possible addition of an antidepressant, but the patient insists that she is not depressed and only needs "freedom" and "naturalistic treatments." 07/04 as only partial response to antipsychotic and persistent mood symptoms (tearful depression), given history of presumed hypomania, will address bipolar component with lithium. Risks/benefits/alternatives reviewed with the patient and given that it is a natural salt, she agrees to a trial. Reviewed baseline labs, no EKG >45 yo so usually check screening EKG to serve as a baseline but she is too paranoid to do this and starting the trial is in her best interest. EKG can be obtained when less ill. Will start conservatively as paranoid about number of pills with 300 mg lithium BID. (4) Macrocytic anemia: will add vitamin B 12 and folate level to repeat CBC on next blood draw. Will confirm compliance with lithium before picking a date for lab draw. Inventory Assets Strengths: Intelligent. Supportive family. 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 Fond of raising sheep and chickens. Needs: Resolution of her thought disorder. Resolution of psychotic features. Willingness to cooperate with treatment. 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 Collateral information will be gathered.) Previous Psychiatric Hospitalization: No (It must be noted that the patient is not a reliable historian and declines to answer a number of questions regarding previous hospitalizations.) Hopelessness: No Smoker: No Protective Factors Assessment Voodoo Beliefs: No : Yes Responsible for Young Children: Yes Employed: No Stable Relationships: Yes Supportive Family: Yes Good Rapport with Provider: No Absence of Any Risk Factors Above: No Interval History Identifying Information LEANNE KERR is a 49-year-old F who currently lives in [place] with her parents and 10 year old son, has a history of psychosis and mood symptoms with unknown past diagnosis and only brief treatment in [facility], not currently in treatment, and was admitted on 06/24/19 19:13 on a 302 involuntary commitment for psychosis with severe disorganization, bizarre and erratic behavior, and statements that she and her family would be better off . She is on a 303 involuntary commitment as of 06/29/19. Chief Complaint "this is torture, I'm hopeless". Review of Systems Sleep Information Total Hours of Sleep: 7 Sleep Comments: pt on q-15 minute checks Meal Information Percent Meal Consumed - Breakfast: 100 Percent Meal Consumed - Lunch: 80 Percent Meal Consumed - Dinner: 100 Nutrition Comment: pt asleep Subjective Subjective Patient was seen & assessed and interval progress reviewed with nursing and social work. Patient exhibited significant anxiety in interacting with me, had to excuse self to wretch in the bathroom. She remains focussed on holistic healing and denies need for medication to organize her thoughts but has remained compliant with Zyprexa. Periods of tearfulness, generally negative re: all aspects of care. After she ended session tracked me down in hallway to complain about the hospital lighting contributing to her condition and paranoid that we are hiding lab results. Told me she believes she is . Discussed negative urine preg and irregular menses as perimenopause. She then stated she meant she wished she was so we wouldn't medicate her. Physical Exam Psychiatric Orientation: alert and oriented x 3 Apperance: + disheveled Eye Contact: + fair eye contact psychomotor restlessness Speech: normal rate/rhythm/volume of speech Affect: + depressed affect and + tearful affect Mood: + irritable mood Thought Process: + tangential thought process Thought Content: + paranoid and + delusions Suicidal Thoughts: denies suicidal thoughts Homicidal Thoughts: denies homicidal thoughts Hallucinations: no auditory hallucinations and no visual hallucinations Cognition: language grossly intact; + recent memory not intact Estimated Intelligence: + above average estimated intelligence Insight: + poor insight Judgement: + poor judgement Vital Signs (Past 24 Hours) Last Vital Signs Temp 36.6 C 07/04/19 06:36 Pulse 81 07/04/19 06:37 Resp 18 07/04/19 06:36 BP 105/66 07/04/19 06:37 Pulse Ox 97 06/24/19 20:18 Results & Data Current Inpatient Medications Current Inpatient Medications: Current Inpatient Medications Acetaminophen (Tylenol) 650 mg PO Q4H PRN PRN Reason: Headache or Minor Fever Stop: 07/24/19 19:11 Al Hydrox/Mg Hydrox/Simethicone (Maalox) 30 ml PO Q4H PRN PRN Reason: GI Upset Stop: 07/24/19 19:11 Bismuth Subsalicylate (Kaopectate) 15 ml PO PRN PRN PRN Reason: Loose Stool Stop: 07/24/19 19:11 Hydroxyzine HCl (Vistaril) 50 mg PO HSZ PRN PRN Reason: Insomnia Stop: 07/24/19 19:11 Hydroxyzine HCl (Vistaril) 25 mg PO Q4H PRN PRN Reason: Anxiety Stop: 07/24/19 19:11 Ibuprofen (Advil) 400 mg PO Q6H PRN PRN Reason: Headache Stop: 07/26/19 18:19 Winnie Carbonate (Winnie Carbonate) 300 mg PO BID CARLOS Stop: 08/03/19 20:59 Magnesium Hydroxide (Milk Of Magnesia) 30 ml PO DAILY PRN PRN Reason: Constipation Stop: 07/24/19 19:11 Olanzapine (Zyprexa) 5 mg IM Q6H PRN PRN Reason: psychosis/agitation Stop: 07/26/19 22:14 Olanzapine (Zyprexa) 5 mg PO QAM CARLOS Stop: 08/01/19 08:59 Last Admin: 07/04/19 09:49 Dose: 5 mg Documented by: Olanzapine (Zyprexa) 10 mg PO HS CARLOS Stop: 08/01/19 21:59 Last Admin: 07/03/19 21:37 Dose: 10 mg Documented by: Sodium Chloride (Geneva Nasal) 1 - 2 sprays NA PRN PRN PRN Reason: Nasal Dryness/Congestion Stop: 07/24/19 19:11 Mental Health & Subst Abuse Tx Psychiatrist Name of Psychiatrist: Antonia Castellon PA-C, [facility] Date of Appointment with Psychiatrist: 01/27/20 Time of Appointment with Psychiatrist: 1pm Customer Relations Representative Name of Customer Relations Representative: ODESSA Phone Number for Customer Relations Representative: [phone] Post Discharge Appointments Primary Care Physician Name Of Family Doctor: Chyna Date of Appointment with PCP: 07/01/19 Contact Information Discharge Discharge Address: [address] [place] [address]
[2019-07-04] MEDS: LITHIUM CARBONATE 300 MG TAB PO SCH (22:02)
[2019-07-04] MEDS: OLANZapine 10 MG TAB PO SCH (22:03)
[2019-07-05] MEDS: LITHIUM CARBONATE 300 MG TAB PO SCH ×2 (08:38→21:25)
[2019-07-05] MEDS: OLANZapine 5 MG TABLET PO SCH (08:38)
--- NOTE | 2019-07-05 10:08 | Psychiatric Progress Note ---
Date of Service July 05, 2019 Impression / Recommendations Impression This 49-year-old woman was brought to the emergency department by the police after a property education sales consultant reported that the patient was on private property and was attempting to pet a horse, behaving bizarrely, and not making sense. Reportedly, the police noted that the patient appeared to have a altered mental status and, accordingly, brought her in on a 302 warrant. She is clearly delusional and markedly disorganized in her thinking/speech, at times approaching word salad. There is no known substance abuse history, and family indicate that she has had psychotic symptoms for at least the past 4 to 5 years, with a brief period of treatment in [place], the details of which are unknown. Our assessment is that the patient is slowly responding to treatment. Likely schizoaffective disorder, bipolar type though bipolar I remains in differential. (1) Psychosis: 06/25/19 -The patient harbors a number of delusional beliefs. For example, she asserts that her is having a romantic affair with her mother, even though the patient and her reportedly have been living in [place] for some time now. She asserts that all doctors, including the undersigned, are deliberately trying to "poison" or otherwise engender illness and all of their patients, and none has the goal of treating or curing patients. -She tells us that she will refuse all psychiatric treatment. She has been referred for individual, group, and activity therapy. We will also need family involvement from her and, if she is permitted, her parents. We are encouraging her to cooperate with treatment, but currently the patient's thinking is so disorganized that it may not be practicable. -The most important treatment at this point for the patient will be psychiatric chemotherapy. Aripiprazole 10 mg daily has been ordered. The patient has repeatedly said that she will refuse to take all psychiatric medications when offered, but we will give her an opportunity to reconsider. 06/26 -remains psychotic and so far refusing medication. She was not able to engage in a rational discussion about treatment options/risks/benefits today and is not felt to have the capacity to make her own tx decisions at this time due to her level of psychosis and impaired insight. Appears feeling of sedation associated with medication in past has been barrier. In that regard, the abilify that has been prescribed may be more tolerable, however if she continues to refuse medication we will need to convert to IM formulation med as alternative. Dr Torres has previously documented his assessment of clinical appropriateness for treatment over objection (for indication of psychosis) to which I concur as she is unlikely to improve without antipsychotic treatment and her severely impaired insight and inability to rationally manipulate information impairs her ability to reasonably engage in treatment decisions. -while this does not appears to be first episode of psychosis, unclear what medical w/u for psychosis has occurred previously apart from head CT and screening labs in ER. will continue to expand database and will consider additional medical w/u such as EEG, RPR, copper studies, heavy metals as indicated. 06/27 -Patient remains floridly psychotic, disorganized, paranoid, with escalating behaviors last evening and continued noncompliance with medication recommendations. With small show force this morning she was ultimately willing to take the oral olanzapine 5 mg dose and she will be written for 5 mg twice daily watching for sedation. The common risks and benefits of the medication were reviewed with her however she is not able to rationally consider indication for treatment or consider risks and benefits at this time. -Due to her symptom severity and unlikelihood of improvement without pharmacotherapy, antipsychotic medication treatment over her objection is felt to be necessary and we will utilize intramuscular olanzapine as backup for refusal of oral medication if necessary. 06/28 -Continue olanzapine 5mg bid, with IM backup, and order fasting lipid profile and glucose for baseline on an atypical for tomorrow. -303 involuntary commitment hearing scheduled for tomorrow. -Encourage patient to engage in treatment as able to tolerate. She is not yet appropriate for groups or a family meeting. She may require an involuntary outpatient commitment, as she lacks all insight into her condition and is refusing treatment. Most likely diagnosis at this time is schizophrenia, although mood disorder with psychosis is also in the differential. Head CT in the ER on admission was normal. 06/29 -Fasting labs notable for cholesterol 208. -303 involuntary commitment granted. Patient remains unwilling for referrals for outpatient treatment and will likely need a 304 IOC. -Encourage group attendance and participation, continue to provide support and psychoeducation. 06/30 -continue treatment plan as above 07/01 - Pt continues to be disorganized and seemingly paranoid. Recommendation is for further titration of olanzapine to better target symptoms of psychosis - Will titrate HS dose of olanzapine to 7.5mg, consider further titration as indicated/tolerated - Will likely pursue a 304 IOC - Continue to encourage group participation, patient reminded that group engagement is factored into discharge considerations. 07/02 -The patient's thinking remains disorganized, but from the perspective of a 1 week absence I am able to observe improvement in the patient's thought processes. -No fixed delusional material is identified today. The patient does appear to remain somewhat disorganized. We are not prepared to say that someone who questions the presence of a "prophet mode of" in association with healthcare is delusional, but the patient uses terms such as "guinea pig" and "trained monkey" when she talks about the way she is treated in the hospital, and also asserts that the hospital is deliberately trying to make her symptomatic. -Our assessment is that the patient has responded favorably to olanzapine. We will increase the dose starting this evening to a dose of olanzapine 5 mg in the morning and 10 mg at bedtime. 07/05 --shift Zyprexa to hs dosing to hopefully improve compliance on discharge, patient attributes low energy to it. File for conversion hearing for 304 outpatient commitment. (2) Auditory hallucinations: 06/25/19 -The patient gives vague responses when ask about perceptual disturbances, but says that she does hear voices that other people do not hearwhile asserting that this is true of everyone, whether or not they realize it. The patient does appear to be responding to internal stimuli and, for example, was observed talking as if to unseen persons by the psychiatrist when he called the patient for the admission examination. -Currently, the patient is saying that she will will refuse all forms of psychiatric medication, other than "[place] peppermint which she can only buy in [place]." The definitive treatment for perceptual disturbances is antipsychotic medications. Within this context, we have ordered aripiprazole 10 mg a day and will titrate as indicated. Medications over objection may need to be ordered given the patient's repeated assertion that she will not agree to take psychiatric medications voluntarily. 06/28 -Patient is refusing to discuss any of her symptoms, has been largely uncooperative since admission. 06/30 -continue attempting to obtain history of symptoms and reality testing as able to 07/02 -The patient reports that she is not experiencing any perceptual disturbances. We remained somewhat suspicious that she may be responding because the patient will periodically stop mid-sentence, stares straight into space for a matter of 10 to 30 seconds, and then make a statement that appears to be unrelated to anything else she had been saying. 07/05 --no evidence of response to internal stimuli 07/03-07/05 (3) Mood disorder: 07/02 -Patient does demonstrate some degree of emotional lability. However, both her most prominent symptoms remain disorganized thinking and disorganized behaviors. She does tend to make somewhat grandiose statements, but does not harbor grandiose delusional beliefs. Instead, she tends towards paranoia, and, for example, today tells me that she will refuse to use the Internet because of "bad things" that can happen to you if you exposure self to computers." She was also reluctant to sit anywhere near a computer during the interview. The patient is adamant that she does not want additional medications. We suggested the possible addition of an antidepressant, but the patient insists that she is not depressed and only needs "freedom" and "naturalistic treatments." 07/04 as only partial response to antipsychotic and persistent mood symptoms (tearful depression), given history of presumed hypomania, will address bipolar component with lithium. Risks/benefits/alternatives reviewed with the patient and given that it is a natural salt, she agrees to a trial. Reviewed baseline labs, no EKG >45 yo so usually check screening EKG to serve as a baseline but she is too paranoid to do this and starting the trial is in her best interest. EKG can be obtained when less ill. Will start conservatively as paranoid about number of pills with 300 mg lithium BID. 07/05 agreeable to screening EKG today, slight improvement after 1 dose. (4) Macrocytic anemia: will add vitamin B 12 and folate level to repeat CBC on next blood draw. Will confirm compliance with lithium before picking a date for lab draw. 07/05 patient agreeable to blood draw today, will supplement as needed. Vit D at request of . Inventory Assets Strengths: Intelligent. Supportive family. 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 Fond of raising sheep and chickens. Needs: Resolution of her thought disorder. Resolution of psychotic features. Willingness to cooperate with treatment. 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 Collateral information will be gathered.) Previous Psychiatric Hospitalization: No (It must be noted that the patient is not a reliable historian and declines to answer a number of questions regarding previous hospitalizations.) Hopelessness: No Smoker: No Protective Factors Assessment Spiritism Beliefs: No : Yes Responsible for Young Children: Yes Employed: No Stable Relationships: Yes Supportive Family: Yes Good Rapport with Provider: No Absence of Any Risk Factors Above: No Interval History Identifying Information LEANNE KERR is a 49-year-old F who currently lives in [place] with her parents and 10 year old son, has a history of psychosis and mood symptoms with unknown past diagnosis and only brief treatment in [facility], not currently in treatment, and was admitted on 06/24/19 19:13 on a 302 involuntary commitment for psychosis with severe disorganization, bizarre and erratic behavior, and statements that she and her family would be better off . She is on a 303 involuntary commitment as of 06/29/19. Chief Complaint "you're torturing me". Review of Systems Sleep Information Total Hours of Sleep: 9 Sleep Comments: pt on q-15 minute checks Meal Information Percent Meal Consumed - Breakfast: 100 Percent Meal Consumed - Lunch: 80 Percent Meal Consumed - Dinner: 100 Nutrition Comment: pt asleep Subjective Subjective Patient was seen & assessed and interval progress reviewed with nursing and social work. Started lithium last hs, she is still very tearful this am but able to maintain a conversation about her admission labs and states will agree to vitamin levels and EKG today. She is sad she cannot be discharged prior to her leaving for [facility]. She does not believe that she is and although she agreed to outpatient discharge planning, she's pretty clear she feels medications are poison and would rather take molasses. Physical Exam Psychiatric Orientation: alert and oriented x 3 Apperance: + disheveled Motor Behavior: steady gait and station and no abnormal motor movements Speech: normal rate/rhythm/volume of speech Affect: + depressed affect and + tearful affect Mood: + depressed mood Thought Process: thought association intact Thought Content: + preoccupation Suicidal Thoughts: denies suicidal thoughts Homicidal Thoughts: denies homicidal thoughts Hallucinations: no auditory hallucinations and no visual hallucinations Cognition: + attention not intact Insight: + poor insight Judgement: + poor judgement Vital Signs (Past 24 Hours) Last Vital Signs Temp 36.5 C 07/05/19 06:36 Pulse 73 07/05/19 06:36 Resp 18 07/05/19 06:36 BP 112/72 07/05/19 06:36 Pulse Ox 97 06/24/19 20:18 Results & Data Current Inpatient Medications Current Inpatient Medications: Current Inpatient Medications Acetaminophen (Tylenol) 650 mg PO Q4H PRN PRN Reason: Headache or Minor Fever Stop: 07/24/19 19:11 Al Hydrox/Mg Hydrox/Simethicone (Maalox) 30 ml PO Q4H PRN PRN Reason: GI Upset Stop: 07/24/19 19:11 Bismuth Subsalicylate (Kaopectate) 15 ml PO PRN PRN PRN Reason: Loose Stool Stop: 07/24/19 19:11 Hydroxyzine HCl (Vistaril) 50 mg PO HSZ PRN PRN Reason: Insomnia Stop: 07/24/19 19:11 Hydroxyzine HCl (Vistaril) 25 mg PO Q4H PRN PRN Reason: Anxiety Stop: 07/24/19 19:11 Ibuprofen (Advil) 400 mg PO Q6H PRN PRN Reason: Headache Stop: 07/26/19 18:19 [place] Carbonate ([place] Carbonate) 300 mg PO BID CARLOS Stop: 08/03/19 20:59 Last Admin: 07/05/19 08:38 Dose: 300 mg Documented by: Magnesium Hydroxide (Milk Of Magnesia) 30 ml PO DAILY PRN PRN Reason: Constipation Stop: 07/24/19 19:11 Olanzapine (Zyprexa) 5 mg IM Q6H PRN PRN Reason: psychosis/agitation Stop: 07/26/19 22:14 Olanzapine (Zyprexa) 10 mg PO HS CARLOS Stop: 07/05/19 23:00 Last Admin: 07/04/19 22:03 Dose: 10 mg Documented by: Olanzapine (Zyprexa Zydis Od) 15 mg PO HS CARLOS Stop: 08/05/19 21:59 Sodium Chloride ([place] Nasal) 1 - 2 sprays NA PRN PRN PRN Reason: Nasal Dryness/Congestion Stop: 07/24/19 19:11 Mental Health & Subst Abuse Tx Psychiatrist Name of Psychiatrist: Antonia Castellon PA-C, [facility] Psychiatrist's Date of Appointment with Psychiatrist: 07/26/19 Time of Appointment with Psychiatrist: 1pm Skein Bander Name of Skein Bander: ODESSA Phone Number for Skein Bander: [phone] Post Discharge Appointments Primary Care Physician Name Of Family Doctor: Chyna Date of Appointment with PCP: 07/01/19 Contact Information Discharge Discharge Address: [address] [place] [address]
[2019-07-05 10:52] LABS: Folate (Folic Acid) 9.44 ng/ml (>5.38)
--- NOTE | 2019-07-05 15:38 | Electrocardiogram Report ---
Test Reason : Blood Pressure : / mmHG Vent. Rate : 064 BPM Atrial Rate : 064 BPM P-R Int : 128 ms QRS Dur : 084 ms QT Int : 422 ms P-R-T Axes : 079 071 002 degrees QTc Int : 435 ms Normal sinus rhythm Normal ECG No previous ECGs available Confirmed by Diomedes Mena ([id number]) on 07/05/2019 3:38:02 PM Referred By: REFERRED SELF Confirmed By:Diomedes Mena
[2019-07-05] MEDS: OLANZapine 10 MG TAB PO SCH (21:26)
[2019-07-05] MEDS ORDERED: OLANZAPINE ZYDIS 5 MG ORALLY DIS. TAB PO SCH (22:00)
[2019-07-06] MEDS: LITHIUM CARBONATE 300 MG TAB PO SCH ×2 (08:33→20:55)
--- NOTE | 2019-07-06 12:53 | Psychiatric Progress Note ---
Date of Service July 06, 2019 Impression / Recommendations Impression This 49-year-old woman was brought to the emergency department by the police after a property prosthodontist/owner reported that the patient was on private property and was attempting to pet a horse, behaving bizarrely, and not making sense. Reportedly, the police noted that the patient appeared to have a altered mental status and, accordingly, brought her in on a 302 warrant. She is clearly delusional and markedly disorganized in her thinking/speech, at times approaching word salad. There is no known substance abuse history, and family indicate that she has had psychotic symptoms for at least the past 4 to 5 years, with a brief period of treatment in [place], the details of which are unknown. Our assessment is that the patient is slowly responding to treatment. Likely schizoaffective disorder, bipolar type though bipolar I remains in differential. (1) Psychosis: 06/25/19 -The patient harbors a number of delusional beliefs. For example, she asserts that her is having a romantic affair with her mother, even though the patient and her reportedly have been living in [place] for some time now. She asserts that all doctors, including the undersigned, are deliberately trying to "poison" or otherwise engender illness and all of their patients, and none has the goal of treating or curing patients. -She tells us that she will refuse all psychiatric treatment. She has been referred for individual, group, and activity therapy. We will also need family involvement from her and, if she is permitted, her parents. We are encouraging her to cooperate with treatment, but currently the patient's thinking is so disorganized that it may not be practicable. -The most important treatment at this point for the patient will be psychiatric chemotherapy. Aripiprazole 10 mg daily has been ordered. The patient has repeatedly said that she will refuse to take all psychiatric medications when offered, but we will give her an opportunity to reconsider. 06/26 -remains psychotic and so far refusing medication. She was not able to engage in a rational discussion about treatment options/risks/benefits today and is not felt to have the capacity to make her own tx decisions at this time due to her level of psychosis and impaired insight. Appears feeling of sedation associated with medication in past has been barrier. In that regard, the abilify that has been prescribed may be more tolerable, however if she continues to refuse medication we will need to convert to IM formulation med as alternative. Dr Torres has previously documented his assessment of clinical appropriateness for treatment over objection (for indication of psychosis) to which I concur as she is unlikely to improve without antipsychotic treatment and her severely impaired insight and inability to rationally manipulate information impairs her ability to reasonably engage in treatment decisions. -while this does not appears to be first episode of psychosis, unclear what medical w/u for psychosis has occurred previously apart from head CT and screening labs in ER. will continue to expand database and will consider additional medical w/u such as EEG, RPR, copper studies, heavy metals as indicated. 06/27 -Patient remains floridly psychotic, disorganized, paranoid, with escalating behaviors last evening and continued noncompliance with medication recommendations. With small show force this morning she was ultimately willing to take the oral olanzapine 5 mg dose and she will be written for 5 mg twice daily watching for sedation. The common risks and benefits of the medication were reviewed with her however she is not able to rationally consider indication for treatment or consider risks and benefits at this time. -Due to her symptom severity and unlikelihood of improvement without pharmacotherapy, antipsychotic medication treatment over her objection is felt to be necessary and we will utilize intramuscular olanzapine as backup for refusal of oral medication if necessary. 06/28 -Continue olanzapine 5mg bid, with IM backup, and order fasting lipid profile and glucose for baseline on an atypical for tomorrow. -303 involuntary commitment hearing scheduled for tomorrow. -Encourage patient to engage in treatment as able to tolerate. She is not yet appropriate for groups or a family meeting. She may require an involuntary outpatient commitment, as she lacks all insight into her condition and is refusing treatment. Most likely diagnosis at this time is schizophrenia, although mood disorder with psychosis is also in the differential. Head CT in the ER on admission was normal. 06/29 -Fasting labs notable for cholesterol 208. -303 involuntary commitment granted. Patient remains unwilling for referrals for outpatient treatment and will likely need a 304 IOC. -Encourage group attendance and participation, continue to provide support and psychoeducation. 06/30 -continue treatment plan as above 07/01 - Pt continues to be disorganized and seemingly paranoid. Recommendation is for further titration of olanzapine to better target symptoms of psychosis - Will titrate HS dose of olanzapine to 7.5mg, consider further titration as indicated/tolerated - Will likely pursue a 304 IOC - Continue to encourage group participation, patient reminded that group engagement is factored into discharge considerations. 07/02 -The patient's thinking remains disorganized, but from the perspective of a 1 week absence I am able to observe improvement in the patient's thought processes. -No fixed delusional material is identified today. The patient does appear to remain somewhat disorganized. We are not prepared to say that someone who questions the presence of a "prophet mode of" in association with healthcare is delusional, but the patient uses terms such as "guinea pig" and "trained monkey" when she talks about the way she is treated in the hospital, and also asserts that the hospital is deliberately trying to make her symptomatic. -Our assessment is that the patient has responded favorably to olanzapine. We will increase the dose starting this evening to a dose of olanzapine 5 mg in the morning and 10 mg at bedtime. 07/05 --shift Zyprexa to hs dosing to hopefully improve compliance on discharge, patient attributes low energy to it. File for conversion hearing for 304 outpatient commitment. 07/06 -patient is taking medication, but clearly states she does not feel she needs it. She would benefit from a long-acting injectable, but has declined this recommendation. -She has been referred for a BCM and will meet with her tomorrow. 304 IOC is scheduled for Friday. -We recommend she follow-up with an outpatient psychiatrist, and have communicated this to [facility], who has recommended she follow-up with [facility]. (2) Auditory hallucinations: 06/25/19 -The patient gives vague responses when ask about perceptual disturbances, but says that she does hear voices that other people do not hearwhile asserting that this is true of everyone, whether or not they realize it. The patient does appear to be responding to internal stimuli and, for example, was observed talking as if to unseen persons by the psychiatrist when he called the patient for the admission examination. -Currently, the patient is saying that she will will refuse all forms of psychiatric medication, other than "Tajik peppermint which she can only buy in [place]." The definitive treatment for perceptual disturbances is antipsychotic medications. Within this context, we have ordered aripiprazole 10 mg a day and will titrate as indicated. Medications over objection may need to be ordered given the patient's repeated assertion that she will not agree to take psychiatric medications voluntarily. 06/28 -Patient is refusing to discuss any of her symptoms, has been largely uncooperative since admission. 06/30 -continue attempting to obtain history of symptoms and reality testing as able to 07/02 -The patient reports that she is not experiencing any perceptual disturbances. We remained somewhat suspicious that she may be responding because the patient will periodically stop mid-sentence, stares straight into space for a matter of 10 to 30 seconds, and then make a statement that appears to be unrelated to anything else she had been saying. 07/05 --no evidence of response to internal stimuli 07/03-07/05 (3) Mood disorder: 07/02 -Patient does demonstrate some degree of emotional lability. However, both her most prominent symptoms remain disorganized thinking and disorganized behaviors. She does tend to make somewhat grandiose statements, but does not harbor grandiose delusional beliefs. Instead, she tends towards paranoia, and, for example, today tells me that she will refuse to use the Internet because of "bad things" that can happen to you if you exposure self to computers." She was also reluctant to sit anywhere near a computer during the interview. The patient is adamant that she does not want additional medications. We suggested the possible addition of an antidepressant, but the patient insists that she is not depressed and only needs "freedom" and "naturalistic treatments." 07/04 as only partial response to antipsychotic and persistent mood symptoms (tearful depression), given history of presumed hypomania, will address bipolar component with lithium. Risks/benefits/alternatives reviewed with the patient and given that it is a natural salt, she agrees to a trial. Reviewed baseline labs, no EKG >45 yo so usually check screening EKG to serve as a baseline but she is too paranoid to do this and starting the trial is in her best interest. EKG can be obtained when less ill. Will start conservatively as paranoid about number of pills with 300 mg lithium BID. 07/05 agreeable to screening EKG today, slight improvement after 1 dose. (4) Macrocytic anemia: will add vitamin B 12 and folate level to repeat CBC on next blood draw. Will confirm compliance with lithium before picking a date for lab draw. 07/05 patient agreeable to blood draw today, will supplement as needed. Vit D at request of . Inventory Assets Strengths: Intelligent. Supportive family. 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 Fond of raising sheep and chickens. Needs: Resolution of her thought disorder. Resolution of psychotic features. Willingness to cooperate with treatment. 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 Collateral information will be gathered.) Previous Psychiatric Hospitalization: No (It must be noted that the patient is not a reliable historian and declines to answer a number of questions regarding previous hospitalizations.) Hopelessness: No Smoker: No Protective Factors Assessment Muslim Beliefs: No : Yes Responsible for Young Children: Yes Employed: No Stable Relationships: Yes Supportive Family: Yes Good Rapport with Provider: No Absence of Any Risk Factors Above: No Interval History Identifying Information LEANNE KERR is a 49-year-old F who currently lives in [place] with her parents and 10 year old son, has a history of psychosis and mood symptoms with unknown past diagnosis and only brief treatment in [facility], not currently in treatment, and was admitted on 06/24/19 19:13 on a 302 involuntary commitment for psychosis with severe disorganization, bizarre and erratic behavior, and statements that she and her family would be better off . She is on a 303 involuntary commitment as of 06/29/19. Chief Complaint " Not too good, I am stuck here". Review of Systems Sleep Information Total Hours of Sleep: 6.5 Sleep Comments: pt on q-15 minute checks Meal Information Percent Meal Consumed - Breakfast: 100 Percent Meal Consumed - Lunch: 50 Percent Meal Consumed - Dinner: 100 Nutrition Comment: per meal record Subjective Subjective Patient was seen & assessed and interval progress reviewed with nursing and social work. Staff report she met with staff from the base service unit yesterday to complete her case management intake, and the executive secretary social welfare followed up on her medical assistance application which has not yet been processed. A 304 IOC hearing was scheduled for Friday. She has been taking her medications, but only because they are required, and has repeatedly stated that she does not need medications and does not want to take them. Her parents and informed staff that her parents have obtained custody of her son, and that they did not want the patient to return to live with them, and instead wanted her to go stay with her aunt and another part of the state. They had not informed the patient of this, and wanted staff to tell her. They also expressed a desire for the patient to have long-term inpatient treatment, and wanted her to be transferred to another hospital when it was explained to them that she could only be involuntarily hospitalized as long as she met criteria per state law. Her parents and came to the unit for a meeting with the patient and the executive secretary social welfare today, and brought in custody paperwork. They stated the patient's son had not been in school for over a year, and that part of the reason he came to the [place] was to be enrolled in school. During the meeting, they told the patient that she could return home to stay with them, and attempted to discuss parenting of her son, which she was resistant to. Although the patient was unhappy with the information discussed in the meeting, she maintained behavioral control, and affect brightened when interacting with peers. On my assessment, she was seen in her room, where she was sitting in bed awake during group therapy time. She was focused on her unhappiness at being in the hospital, blaming others for her situation and for "missing the holidays with my family." She adamantly denies that she needs psychiatric treatment, and states that she could manage all of her problems by "taking a long walk, some fresh air." She does not feel she needs medications and states they are making her feel "woozy," but denies problems with appetite, vomiting, diarrhea or constipation. She says groups are not helpful for her and wants to know when she can be discharged. Physical Exam Psychiatric Orientation: alert; + uncooperative Apperance: appropriately dressed (Wearing the same clothes since admission); + inappropriately groomed (Limited grooming, hair appears unwashed) Eye Contact: + fair eye contact Motor Behavior: steady gait and station and no abnormal motor movements Speech: normal rate/rhythm/volume of speech (Irritable, sarcastic tone at times) Affect: + irritable affect and + constricted affect Mood: + irritable mood and + angry mood Irrational thought process Thought Content: + paranoid Makes vague statements, lacks insight Suicidal Thoughts: denies suicidal thoughts Homicidal Thoughts: denies homicidal thoughts Hallucinations: no auditory hallucinations and no visual hallucinations Insight: + poor insight Judgement: + poor judgement Vital Signs (Past 24 Hours) Last Vital Signs Temp 36.5 C 07/06/19 06:38 Pulse 80 07/06/19 06:39 Resp 18 07/06/19 06:38 BP 104/71 07/06/19 06:39 Pulse Ox 97 06/24/19 20:18 Results & Data Current Inpatient Medications Current Inpatient Medications: Current Inpatient Medications Acetaminophen (Tylenol) 650 mg PO Q4H PRN PRN Reason: Headache or Minor Fever Stop: 07/24/19 19:11 Al Hydrox/Mg Hydrox/Simethicone (Maalox) 30 ml PO Q4H PRN PRN Reason: GI Upset Stop: 07/24/19 19:11 Bismuth Subsalicylate (Kaopectate) 15 ml PO PRN PRN PRN Reason: Loose Stool Stop: 07/24/19 19:11 Hydroxyzine HCl (Vistaril) 50 mg PO HSZ PRN PRN Reason: Insomnia Stop: 07/24/19 19:11 Hydroxyzine HCl (Vistaril) 25 mg PO Q4H PRN PRN Reason: Anxiety Stop: 07/24/19 19:11 Ibuprofen (Advil) 400 mg PO Q6H PRN PRN Reason: Headache Stop: 07/26/19 18:19 Breese Carbonate (Breese Carbonate) 300 mg PO BID CARLOS Stop: 08/03/19 20:59 Last Admin: 07/06/19 08:33 Dose: 300 mg Documented by: Magnesium Hydroxide (Milk Of Magnesia) 30 ml PO DAILY PRN PRN Reason: Constipation Stop: 07/24/19 19:11 Olanzapine (Zyprexa) 5 mg IM Q6H PRN PRN Reason: psychosis/agitation Stop: 07/26/19 22:14 Olanzapine (Zyprexa Zydis Od) 15 mg PO HS CARLOS Stop: 08/05/19 21:59 Sodium Chloride ([place] Nasal) 1 - 2 sprays NA PRN PRN PRN Reason: Nasal Dryness/Congestion Stop: 07/24/19 19:11 Mental Health & Subst Abuse Tx Psychiatrist Name of Psychiatrist: Antonia Castellon PA-C, [facility] Psychiatrist's Date of Appointment with Psychiatrist: 07/26/19 Time of Appointment with Psychiatrist: 1pm [employer] Director Name of [employer] Director: ODESSA Phone Number for [employer] Director: [phone] Post Discharge Appointments Primary Care Physician Name Of Family Doctor: Chyna Date of Appointment with PCP: 07/01/19 Contact Information Discharge Discharge Address: [address] [place] [address]
[2019-07-06] MEDS: OLANZAPINE ZYDIS 5 MG ORALLY DIS. TAB PO SCH (20:56)
[2019-07-07] MEDS: CHOLECALCIFEROL (VITAMIN D) 400 UNITS TABLET PO SCH (09:02)
[2019-07-07] MEDS: LITHIUM CARBONATE 300 MG TAB PO SCH ×2 (09:02→21:24)
--- NOTE | 2019-07-07 12:27 | Psychiatric Progress Note ---
Date of Service July 07, 2019 Impression / Recommendations Impression This 49-year-old woman was brought to the emergency department by the police after a property esthetician/owner reported that the patient was on private property and was attempting to pet a horse, behaving bizarrely, and not making sense. Reportedly, the police noted that the patient appeared to have a altered mental status and, accordingly, brought her in on a 302 warrant. She is clearly delusional and markedly disorganized in her thinking/speech, at times approaching word salad. There is no known substance abuse history, and family indicate that she has had psychotic symptoms for at least the past 4 to 5 years, with a brief period of treatment in [place], the details of which are unknown. Patient is slowly responding to treatment, and aftercare arrangements are being made to advocate for appropriate providers as patient will be discharged on a 304 outpatient involuntary commitment. Likely schizoaffective disorder, bipolar type though bipolar I remains in differential. (1) Psychosis: 06/25/19 -The patient harbors a number of delusional beliefs. For example, she asserts that her is having a romantic affair with her mother, even though the patient and her reportedly have been living in [place] for some time now. She asserts that all doctors, including the undersigned, are deliberately trying to "poison" or otherwise engender illness and all of their patients, and none has the goal of treating or curing patients. -She tells us that she will refuse all psychiatric treatment. She has been referred for individual, group, and activity therapy. We will also need family involvement from her and, if she is permitted, her parents. We are encouraging her to cooperate with treatment, but currently the patient's thinking is so disorganized that it may not be practicable. -The most important treatment at this point for the patient will be psychiatric chemotherapy. Aripiprazole 10 mg daily has been ordered. The patient has repeatedly said that she will refuse to take all psychiatric medications when offered, but we will give her an opportunity to reconsider. 06/26 -remains psychotic and so far refusing medication. She was not able to engage in a rational discussion about treatment options/risks/benefits today and is not felt to have the capacity to make her own tx decisions at this time due to her level of psychosis and impaired insight. Appears feeling of sedation associated with medication in past has been barrier. In that regard, the abilify that has been prescribed may be more tolerable, however if she continues to refuse medication we will need to convert to IM formulation med as alternative. Dr Torres has previously documented his assessment of clinical appropriateness for treatment over objection (for indication of psychosis) to which I concur as she is unlikely to improve without antipsychotic treatment and her severely impaired insight and inability to rationally manipulate information impairs her ability to reasonably engage in treatment decisions. -while this does not appears to be first episode of psychosis, unclear what medical w/u for psychosis has occurred previously apart from head CT and screening labs in ER. will continue to expand database and will consider additional medical w/u such as EEG, RPR, copper studies, heavy metals as indicated. 06/27 -Patient remains floridly psychotic, disorganized, paranoid, with escalating behaviors last evening and continued noncompliance with medication recommendations. With small show force this morning she was ultimately willing to take the oral olanzapine 5 mg dose and she will be written for 5 mg twice daily watching for sedation. The common risks and benefits of the medication were reviewed with her however she is not able to rationally consider indication for treatment or consider risks and benefits at this time. -Due to her symptom severity and unlikelihood of improvement without pharmacotherapy, antipsychotic medication treatment over her objection is felt to be necessary and we will utilize intramuscular olanzapine as backup for refusal of oral medication if necessary. 06/28 -Continue olanzapine 5mg bid, with IM backup, and order fasting lipid profile and glucose for baseline on an atypical for tomorrow. -303 involuntary commitment hearing scheduled for tomorrow. -Encourage patient to engage in treatment as able to tolerate. She is not yet appropriate for groups or a family meeting. She may require an involuntary outpatient commitment, as she lacks all insight into her condition and is refusing treatment. Most likely diagnosis at this time is schizophrenia, although mood disorder with psychosis is also in the differential. Head CT in the ER on admission was normal. 06/29 -Fasting labs notable for cholesterol 208. -303 involuntary commitment granted. Patient remains unwilling for referrals for outpatient treatment and will likely need a 304 IOC. -Encourage group attendance and participation, continue to provide support and psychoeducation. 06/30 -continue treatment plan as above 07/01 - Pt continues to be disorganized and seemingly paranoid. Recommendation is for further titration of olanzapine to better target symptoms of psychosis - Will titrate HS dose of olanzapine to 7.5mg, consider further titration as indicated/tolerated - Will likely pursue a 304 IOC - Continue to encourage group participation, patient reminded that group engagement is factored into discharge considerations. 07/02 -The patient's thinking remains disorganized, but from the perspective of a 1 week absence I am able to observe improvement in the patient's thought processes. -No fixed delusional material is identified today. The patient does appear to remain somewhat disorganized. We are not prepared to say that someone who questions the presence of a "prophet mode of" in association with healthcare is delusional, but the patient uses terms such as "guinea pig" and "trained monkey" when she talks about the way she is treated in the hospital, and also asserts that the hospital is deliberately trying to make her symptomatic. -Our assessment is that the patient has responded favorably to olanzapine. We will increase the dose starting this evening to a dose of olanzapine 5 mg in the morning and 10 mg at bedtime. 07/05 --shift Zyprexa to hs dosing to hopefully improve compliance on discharge, patient attributes low energy to it. File for conversion hearing for 304 outpatient commitment. 07/06 -patient is taking medication, but clearly states she does not feel she ne eds it. She would benefit from a long-acting injectable, but has declined this recommendation. -She has been referred for a BCM and will meet with her tomorrow. 304 IOC is scheduled for Friday. -We recommend she follow-up with an outpatient psychiatrist, and have communicated this to [facility], who has recommended she follow-up with [facility]. 07/07 - Continue medication regimen as above - Meeting with case sealer scheduled for this afternoon - Continue to coordinate appropriate aftercare plans, as patient will be discharged on a 304 IOC (2) Auditory hallucinations: 06/25/19 -The patient gives vague responses when ask about perceptual disturbances, but says that she does hear voices that other people do not hearwhile asserting that this is true of everyone, whether or not they realize it. The patient does appear to be responding to internal stimuli and, for example, was observed talking as if to unseen persons by the psychiatrist when he called the patient for the admission examination. -Currently, the patient is saying that she will will refuse all forms of psychiatric medication, other than "[place] peppermint which she can only buy in [place]." The definitive treatment for perceptual disturbances is antipsychotic medications. Within this context, we have ordered aripiprazole 10 mg a day and will titrate as indicated. Medications over objection may need to be ordered given the patient's repeated assertion that she will not agree to take psychiatric medications voluntarily. 06/28 -Patient is refusing to discuss any of her symptoms, has been largely uncooperative since admission. 06/30 -continue attempting to obtain history of symptoms and reality testing as able to 07/02 -The patient reports that she is not experiencing any perceptual disturbances. We remained somewhat suspicious that she may be responding because the patient will periodically stop mid-sentence, stares straight into space for a matter of 10 to 30 seconds, and then make a statement that appears to be unrelated to anything else she had been saying. 07/03-07/07 - no evidence of response to internal stimuli (3) Mood disorder: 07/02 -Patient does demonstrate some degree of emotional lability. However, both her most prominent symptoms remain disorganized thinking and disorganized behaviors. She does tend to make somewhat grandiose statements, but does not harbor grandiose delusional beliefs. Instead, she tends towards paranoia, and, for example, today tells me that she will refuse to use the Internet because of "bad things" that can happen to you if you exposure self to computers." She was also reluctant to sit anywhere near a computer during the interview. The patient is adamant that she does not want additional medications. We suggested the possible addition of an antidepressant, but the patient insists that she is not depressed and only needs "freedom" and "naturalistic treatments." 07/04 as only partial response to antipsychotic and persistent mood symptoms (tearful depression), given history of presumed hypomania, will address bipolar component with lithium. Risks/benefits/alternatives reviewed with the patient and given that it is a natural salt, she agrees to a trial. Reviewed baseline labs, no EKG >45 yo so usually check screening EKG to serve as a baseline but she is too paranoid to do this and starting the trial is in her best interest. EKG can be obtained when less ill. Will start conservatively as paranoid about number of pills with 300 mg lithium BID. 07/05 agreeable to screening EKG today, slight improvement after 1 dose. 07/07 - Continue medication combination of lithium 300mg BID and olanzapine 15mg qHS (4) Macrocytic anemia: will add vitamin B 12 and folate level to repeat CBC on next blood draw. Will confirm compliance with lithium before picking a date for lab draw. 07/05 patient agreeable to blood draw today, will supplement as needed. Vit D at request of . Inventory Assets Strengths: Intelligent. Supportive family. 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 Fond of raising sheep and chickens. Needs: Resolution of her thought disorder. Resolution of psychotic features. Willingness to cooperate with treatment. 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 Collateral information will be gathered.) Previous Psychiatric Hospitalization: No (It must be noted that the patient is not a reliable historian and declines to answer a number of questions regarding previous hospitalizations.) Hopelessness: No Smoker: No Protective Factors Assessment Anabaptist Beliefs: No : Yes Responsible for Young Children: Yes Employed: No Stable Relationships: Yes Supportive Family: Yes Good Rapport with Provider: No Absence of Any Risk Factors Above: No Interval History Identifying Information LEANNE KERR is a 49-year-old F who currently lives in [place] with her parents and 10 year old son, has a history of psychosis and mood symptoms with unknown past diagnosis and only brief treatment in [facility], not currently in treatment, and was admitted on 06/24/19 19:13 on a 302 involuntary commitment for psychosis with severe disorganization, bizarre and erratic behavior, and statements that she and her family would be better off . She is on a 303 involuntary commitment as of 06/29/19. Chief Complaint "It's a pretty difficult day, my is leaving today." Review of Systems Notes Constitutional: denied Cardiovascular: denied Respiratory: denied Gastrointestinal: denied Neurological: denied Psychiatric: denies symptoms other than stated above Total of at least 10 systems reviewed, pertinent positives as above and in HPI. Sleep Information Total Hours of Sleep: 7.25 Sleep Comments: pt on q-15 minute checks Meal Information Percent Meal Consumed - Breakfast: 100 Percent Meal Consumed - Lunch: 100 Percent Meal Consumed - Dinner: 100 Nutrition Comment: per meal record Subjective Subjective Patient was seen & assessed and interval progress reviewed with treatment team. Staff report the patient has been more subdued and isolated over the last day, apparently reporting knowledge that if she speaks about her symptoms she may have to be admitted longer. Patient's family came to the unit yesterday to participate in a meeting to inform patient of her parents obtaining emergency custody of her son, as well as other discharge plans. Hearing for a 304 involuntary outpatient commitment is still scheduled for the morning of 07/09/2019. Patient is scheduled to meet with her assigned case sealer this afternoon. Patient was seen today to assess progress since admission. She states that she is feeling "down" and "in my sorrows" today, as her was scheduled to return to [facility] today. When asked if there is any additional s upport that staff can offer to her today, patient states "any extra support? There were so many things you could have done to prevent this from happening. I am kind of offended you would even ask." Patient admits that she is feeling more withdrawn today, and is not overly interested in attending group activities. Patient was encouraged to consider the recreational groups, especially as they may provide a distraction from the feelings related to her 's departure. Patient is able to verbalize her understanding of the discharge plan, which includes her staying with her parents on discharge. Otherwise, patient avoids more in-depth topics by bringing up conversations related to family and the holidays. For example, patient talks about enjoying family get-togethers as they offer a number of different desserts. She requests an additional cookie with lunch, but the temperature in her room be increased, and otherwise denies current concerns. She denies suicidal ideation and cont inues to be interested in discharge, though is far less preoccupied with this. Physical Exam Psychiatric Orientation: alert, oriented x 3 and + guarded Apperance: appropriately dressed, appropriately groomed and appeared stated age Eye Contact: good eye contact Motor Behavior: no abnormal motor movements (observed while sitting upright in bed) Speech: normal rate/rhythm/volume of speech Affect: + depressed affect, + irritable affect and mood congruent with affect Mood: + depressed mood ("down" and "in my sorrows") and + irritable mood Thought Process: goal directed thought process (but remains irrational at times) Thought Content: + paranoid Suicidal Thoughts: denies suicidal thoughts Homicidal Thoughts: denies homicidal thoughts Hallucinations: no auditory hallucinations and no visual hallucinations Insight: + poor insight Judgement: + poor judgement Vital Signs (Past 24 Hours) Last Vital Signs Temp 36.6 C 07/07/19 06:40 Pulse 73 07/07/19 06:40 Resp 18 07/07/19 06:40 BP 106/69 07/07/19 06:40 Pulse Ox 97 06/24/19 20:18 Results & Data Current Inpatient Medications Current Inpatient Medications: Current Inpatient Medications Acetaminophen (Tylenol) 650 mg PO Q4H PRN PRN Reason: Headache or Minor Fever Stop: 07/24/19 19:11 Al Hydrox/Mg Hydrox/Simethicone (Maalox) 30 ml PO Q4H PRN PRN Reason: GI Upset Stop: 07/24/19 19:11 Bismuth Subsalicylate (Kaopectate) 15 ml PO PRN PRN PRN Reason: Loose Stool Stop: 07/24/19 19:11 Hydroxyzine HCl (Vistaril) 50 mg PO HSZ PRN PRN Reason: Insomnia Stop: 07/24/19 19:11 Hydroxyzine HCl (Vistaril) 25 mg PO Q4H PRN PRN Reason: Anxiety Stop: 07/24/19 19:11 Ibuprofen (Advil) 400 mg PO Q6H PRN PRN Reason: Headache Stop: 07/26/19 18:19 [place] Carbonate ([place] Carbonate) 300 mg PO BID CARLOS Stop: 08/03/19 20:59 Last Admin: 07/07/19 09:02 Dose: 300 mg Documented by: Magnesium Hydroxide (Milk Of Magnesia) 30 ml PO DAILY PRN PRN Reason: Constipation Stop: 07/24/19 19:11 Olanzapine (Zyprexa) 5 mg IM Q6H PRN PRN Reason: psychosis/agitation Stop: 07/26/19 22:14 Olanzapine (Zyprexa Zydis Od) 15 mg PO HS CARLOS Stop: 08/05/19 21:59 Last Admin: 07/06/19 20:56 Dose: 15 mg Documented by: Sodium Chloride ([place] Nasal) 1 - 2 sprays NA PRN PRN PRN Reason: Nasal Dryness/Congestion Stop: 07/24/19 19:11 Vitamin D (Vitamin D3) 800 units PO QAM CARLOS Stop: 08/06/19 08:59 Last Admin: 07/07/19 09:02 Dose: 800 units Documented by: Mental Health & Subst Abuse Tx Psychiatrist Name of Psychiatrist: Antonia Castellon PA-C, [facility] Psychiatrist's Date of Appointment with Psychiatrist: 07/26/19 Time of Appointment with Psychiatrist: 1pm Licensed Psychologist Name of Licensed Psychologist: ODESSA Phone Number for Licensed Psychologist: [phone] Post Discharge Appointments Primary Care Physician Name Of Family Doctor: Chyna Date of Appointment with PCP: 07/01/19 Contact Information Discharge Discharge Address: [address] [place] [id number]
[2019-07-07] MEDS: OLANZAPINE ZYDIS 5 MG ORALLY DIS. TAB PO SCH (21:24)
[2019-07-08] MEDS: LITHIUM CARBONATE 300 MG TAB PO SCH ×2 (08:54→21:09)
[2019-07-08] MEDS: CHOLECALCIFEROL (VITAMIN D) 400 UNITS TABLET PO SCH (08:57)
--- NOTE | 2019-07-08 12:13 | Psychiatric Progress Note ---
Date of Service July 08, 2019 Impression / Recommendations Impression This 49-year-old woman was brought to the emergency department by the police after a property intermission coordinator reported that the patient was on private property and was attempting to pet a horse, behaving bizarrely, and not making sense. Reportedly, the police noted that the patient appeared to have a altered mental status and, accordingly, brought her in on a 302 warrant. She was delusional and markedly disorganized in her thinking/speech, at times approaching word salad. There is no known substance abuse history, and family indicate that she has had psychotic symptoms for at least the past 4 to 5 years, with a brief period of treatment in [place], the details of which are unknown. Patient is slowly responding to treatment, and aftercare arrangements are being made to advocate for appropriate providers as patient will be discharged on a 304 outpatient involuntary commitment. Likely schizoaffective disorder, bipolar type though bipolar I remains in differential. (1) Schizoaffective disorder, bipolar type: 06/25/19 -The patient harbors a number of delusional beliefs. For example, she asserts that her is having a romantic affair with her mother, even though the patient and her reportedly have been living in [facility] for some time now. She asserts that all doctors, including the undersigned, are deliberately trying to "poison" or otherwise engender illness and all of their patients, and none has the goal of treating or curing patients. -She tells us that she will refuse all psychiatric treatment. She has been referred for individual, group, and activity therapy. We will also need family involvement from her and, if she is permitted, her parents. We are encouraging her to cooperate with treatment, but currently the patient's thinking is so disorganized that it may not be practicable. -The most important treatment at this point for the patient will be psychiatric chemotherapy. Aripiprazole 10 mg daily has been ordered. The patient has repeatedly said that she will refuse to take all psychiatric medications when offered, but we will give her an opportunity to reconsider. 06/26 -remains psychotic and so far refusing medication. She was not able to engage in a rational discussion about treatment options/risks/benefits today and is not felt to have the capacity to make her own tx decisions at this time due to her level of psychosis and impaired insight. Appears feeling of sedation associated with medication in past has been barrier. In that regard, the abilify that has been prescribed may be more tolerable, however if she continues to refuse medication we will need to convert to IM formulation med as alternative. Dr Torres has previously documented his assessment of clinical appropriateness for treatment over objection (for indication of psychosis) to which I concur as she is unlikely to improve without antipsychotic treatment and her severely impaired insight and inability to rationally manipulate information impairs her ability to reasonably engage in treatment decisions. -while this does not appears to be first episode of psychosis, unclear what medical w/u for psychosis has occurred previously apart from head CT and screening labs in ER. will continue to expand database and will consider additional medical w/u such as EEG, RPR, copper studies, heavy metals as indicated. 06/27 -Patient remains floridly psychotic, disorganized, paranoid, with escalating behaviors last evening and continued noncompliance with medication recommendations. With small show force this morning she was ultimately willing to take the oral olanzapine 5 mg dose and she will be written for 5 mg twice daily watching for sedation. The common risks and benefits of the medication were reviewed with her however she is not able to rationally consider indication for treatment or consider risks and benefits at this time. -Due to her symptom severity and unlikelihood of improvement without pharmacotherapy, antipsychotic medication treatment over her objection is felt to be necessary and we will utilize intramuscular olanzapine as backup for refusal of oral medication if necessary. 06/28 -Continue olanzapine 5mg bid, with IM backup, and order fasting lipid profile and glucose for baseline on an atypical for tomorrow. -303 involuntary commitment hearing scheduled for tomorrow. -Encourage patient to engage in treatment as able to tolerate. She is not yet appropriate for groups or a family meeting. She may require an involuntary outpatient commitment, as she lacks all insight into her condition and is refusing treatment. Most likely diagnosis at this time is schizophrenia, although mood disorder with psychosis is also in the differential. Head CT in the ER on admission was normal. 06/29 -Fasting labs notable for cholesterol 208. -303 involuntary commitment granted. Patient remains unwilling for referrals for outpatient treatment and will likely need a 304 IOC. -Encourage group attendance and participation, continue to provide support and psychoeducation. 06/30 -continue treatment plan as above 07/01 - Pt continues to be disorganized and seemingly paranoid. Recommendation is for further titration of olanzapine to better target symptoms of psychosis - Will titrate HS dose of olanzapine to 7.5mg, consider further titration as indicated/tolerated - Will likely pursue a 304 IOC - Continue to encourage group participation, patient reminded that group engagement is factored into discharge considerations. 07/02 -The patient's thinking remains disorganized, but from the perspective of a 1 week absence I am able to observe improvement in the patient's thought processes. -No fixed delusional material is identified today. The patient does appear to remain somewhat disorganized. We are not prepared to say that someone who questions the presence of a "prophet mode of" in association with healthcare is delusional, but the patient uses terms such as "guinea pig" and "trained monkey" when she talks about the way she is treated in the hospital, and also asserts that the hospital is deliberately trying to make her symptomatic. -Our assessment is that the patient has responded favorably to olanzapine. We will increase the dose starting this evening to a dose of olanzapine 5 mg in the morning and 10 mg at bedtime. 07/05 --shift Zyprexa to hs dosing to hopefully improve compliance on discharge, patient attributes low energy to it. File for conversion hearing for 304 outpatient commitment. 07/06 -patient is taking medication, but clearly states she does not feel she needs it. She would benefit from a long-acting injectable, but has declined this recommendation. -She has been referred for a BCM and will meet with her tomorrow. 304 IOC is scheduled for Friday. -We recommend she follow-up with an outpatient psychiatrist, and have communicated this to [facility], who has recommended she follow-up with [place]. 07/07 - Continue medication regimen as above - Meeting with bilingual patient support caseworker scheduled for this afternoon - Continue to coordinate appropriate aftercare plans, as patient will be discharged on a 304 IOC 07/08 -We have communicated our recommendations to [facility] base service unit, including that patient follow-up with an outpatient psychiatrist, given her very limited insight and high risk of nonadherence with outpatient treatment, even on an IOC. We have also communicated our recommendations for follow-up with her therapist, which they will need to find as she does not currently have insurance. She met with her BCM yesterday. 304 IOC hearing scheduled for tomorrow with discharge afterwards. She plans to stay with her parents. -Although patient is taking medications orally here, she has repeatedly stated she does not believe she needs medications. She has refused recommendations for a long-acting injectable antipsychotic, but should continue to explore this option. Present on Admission?: Yes (2) Mood disorder: 1/ -Patient does demonstrate some degree of emotional lability. However, both her most prominent symptoms remain disorganized thinking and disorganized behaviors. She does tend to make somewhat grandiose statements, but does not harbor grandiose delusional beliefs. Instead, she tends towards paranoia, and, for example, today tells me that she will refuse to use the Internet because of "bad things" that can happen to you if you exposure self to computers." She was also reluctant to sit anywhere near a computer during the interview. The patient is adamant that she does not want additional medications. We suggested the possible addition of an antidepressant, but the patient insists that she is not depressed and only needs "freedom" and "naturalistic treatments." 07/04 as only partial response to antipsychotic and persistent mood symptoms (tearful depression), given history of presumed hypomania, will address bipolar component with lithium. Risks/benefits/alternatives reviewed with the patient and given that it is a natural salt, she agrees to a trial. Reviewed baseline labs, no EKG >45 yo so usually check screening EKG to serve as a baseline but she is too paranoid to do this and starting the trial is in her best interest. EKG can be obtained when less ill. Will start conservatively as paranoid about number of pills with 300 mg lithium BID. 07/05 agreeable to screening EKG today, slight improvement after 1 dose. 07/07 - Continue medication combination of lithium 300mg BID and olanzapine 15mg qHS Present on Admission?: Yes (3) Auditory hallucinations: 06/25/19 -The patient gives vague responses when ask about perceptual disturbances, but says that she does hear voices that other people do not hearwhile asserting that this is true of everyone, whether or not they realize it. The patient does appear to be responding to internal stimuli and, for example, was observed talking as if to unseen persons by the psychiatrist when he called the patient for the admission examination. -Currently, the patient is saying that she will will refuse all forms of psychiatric medication, other than "Turkmen peppermint which she can only buy in [place]." The definitive treatment for perceptual disturbances is antipsychotic medications. Within this context, we have ordered aripiprazole 10 mg a day and will titrate as indicated. Medications over objection may need to be ordered given the patient's repeated assertion that she will not agree to take psychiatric medications voluntarily. 06/28 -Patient is refusing to discuss any of her symptoms, has been largely uncooperative since admission. 06/30 -continue attempting to obtain history of symptoms and reality testing as able to 07/02 -The patient reports that she is not experiencing any perceptual disturbances. We remained somewhat suspicious that she may be responding because the patient will periodically stop mid-sentence, stares straight into space for a matter of 10 to 30 seconds, and then make a statement that appears to be unrelated to anything else she had been saying. 07/03-07/07 - no evidence of response to internal stimuli Present on Admission?: Yes (4) Macrocytic anemia: will add vitamin B 12 and folate level to repeat CBC on next blood draw. Will confirm compliance with lithium before picking a date for lab draw. 07/05 patient agreeable to blood draw today, will supplement as needed. Vit D at request of . Present on Admission?: Yes Inventory Assets Strengths: Intelligent. Supportive family. 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 Fond of raising sheep and chickens. Needs: Resolution of her thought disorder. Resolution of psychotic features. Willingness to cooperate with treatment. 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 Collateral information will be gathered.) Previous Psychiatric Hospitalization: No (It must be noted that the patient is not a reliable historian and declines to answer a number of questions regarding previous hospitalizations.) Hopelessness: No Smoker: No Protective Factors Assessment Mandaeism Beliefs: No : Yes Responsible for Young Children: Yes Employed: No Stable Relationships: Yes Supportive Family: Yes Good Rapport with Provider: No Absence of Any Risk Factors Above: No Interval History Identifying Information LEANNE KERR is a 49-year-old F who currently lives in [place] with her parents and 10 year old son, has a history of psychosis and mood symptoms with unknown past diagnosis and only brief treatment in [place], not currently in treatment, and was admitted on 06/24/19 19:13 on a 302 involuntary commitment for psychosis with severe disorganization, bizarre and erratic behavior, and statements that she and her family would be better off . She is on a 303 involuntary commitment as of 06/29/19. Chief Complaint " Not too good, I'm stuck here". Review of Systems Sleep Information Total Hours of Sleep: 7.5 Sleep Comments: pt on q-15 minute checks Meal Information Percent Meal Consumed - Breakfast: 100 Percent Meal Consumed - Lunch: 100 Percent Meal Consumed - Dinner: 100 Nutrition Comment: per meal record Subjective Subjective Patient was seen & assessed and interval progress reviewed with nursing and social work. Yesterday, [facility] ID accounts payable administrator was contacted by this physician regarding our recommendation that the patient be followed by a psychiatrist, given the plan to discharge her on a 304 IOC, but they responded that the only option was [place] where she is scheduled with a PA. She does not yet have an outpatient therapist. Her BCM, Julia, came to the unit and met with her yesterday. She stated the patient was reluctant to accept her services, but ultimately agreed to meet, although insisted that be 1 week after discharge so that she had time to settle in at home. Her parents have been informed of her 304 IOC hearing tomorrow, and stated they plan to attend it, and then take her home afterwards. The patient has been attending groups, focused on her many complaints about her hospitalization. On my assessment, she reports that her mood is poor, which she attributes to being in the hospital, stating she will feel fine when she is discharged. She denies hallucinations and thoughts of h arming herself or others. She denies any aberration in her thought process, and continues to state that she did not need to be hospitalized, and does not need medication. She alludes to concerns about her mental health, stating that she will had applied for medical assistance in order to enter into treatment, but states she was planning to "get a physical," and "maybe go to the beach and get a suntan" as ways to get healthy. She talks at length about her dissatisfaction that her "family time together was ruined" by being hospitalized, that it was "a waste of taxpayer money," and blames hospital staff for this. Although she understands that medications are recommended for her condition, she is adamant that she does not need them, but then says that she is "capable of taking my own medication without supervision." She repeatedly returns to all the reasons that she needs to leave the hospital, saying she will financially support her son and parents and she has a lot of money, is thinking about going back to school, training for a triathlon, and her parents need her help with physical labor. She says that her BCM, whom she met with yesterday, told her that they would meet in 2 weeks, then in a month, "and then taper off." Again reviewed the plan for an involuntary outpatient commitment, and that that will entail regular meetings with a BCM, therapist, and psychiatrist, as well as taking medications as prescribed. She repeatedly returns to the topic of all of the things that are wrong with the hospital, stating that it is "a crime to keep people in here without fresh air," the furniture and decorations are ugly, she should be allowed to cook and make her own coffee, etc. Physical Exam Psychiatric Orientation: alert, oriented x 3 and cooperative (Partially, argumentative) Wearing the same sweater and pants since admission. Limited hygiene and grooming Eye Contact: good eye contact Motor Behavior: steady gait and station and no abnormal motor movements Speech: normal rate/rhythm/volume of speech Affect: + blunted affect and + irritable affect "Not too good." Thought Process: + tangential thought process and + perseveration Thought Content: + preoccupation, + paranoid and + persecution Suicidal Thoughts: denies suicidal thoughts Homicidal Thoughts: denies homicidal thoughts Hallucinations: no auditory hallucinations and no visual hallucinations Cognition: recent memory grossly intact, attention grossly intact and language grossly intact Estimated Intelligence: consistent with education level Insight: + severely impaired insight Judgement: + impaired judgement Vital Signs (Past 24 Hours) Last Vital Signs Temp 36.5 C 07/08/19 06:41 Pulse 76 07/08/19 06:42 Resp 18 07/08/19 06:41 BP 106/63 07/08/19 06:42 Pulse Ox 97 06/24/19 20:18 Results & Data Current Inpatient Medications Current Inpatient Medications: Current Inpatient Medications Acetaminophen (Tylenol) 650 mg PO Q4H PRN PRN Reason: Headache or Minor Fever Stop: 07/24/19 19:11 Al Hydrox/Mg Hydrox/Simethicone (Maalox) 30 ml PO Q4H PRN PRN Reason: GI Upset Stop: 07/24/19 19:11 Bismuth Subsalicylate (Kaopectate) 15 ml PO PRN PRN PRN Reason: Loose Stool Stop: 07/24/19 19:11 Hydroxyzine HCl (Vistaril) 50 mg PO HSZ PRN PRN Reason: Insomnia Stop: 07/24/19 19:11 Hydroxyzine HCl (Vistaril) 25 mg PO Q4H PRN PRN Reason: Anxiety Stop: 07/24/19 19:11 Ibuprofen (Advil) 400 mg PO Q6H PRN PRN Reason: Headache Stop: 07/26/19 18:19 Sangaree Carbonate (Sangaree Carbonate) 300 mg PO BID CARLOS Stop: 08/03/19 20:59 Last Admin: 07/08/19 08:54 Dose: 300 mg Documented by: Magnesium Hydroxide (Milk Of Magnesia) 30 ml PO DAILY PRN PRN Reason: Constipation Stop: 07/24/19 19:11 Olanzapine (Zyprexa) 5 mg IM Q6H PRN PRN Reason: psychosis/agitation Stop: 07/26/19 22:14 Olanzapine (Zyprexa Zydis Od) 15 mg PO HS CARLOS Stop: 08/05/19 21:59 Last Admin: 07/07/19 21:24 Dose: 15 mg Documented by: Sodium Chloride (Camp Nasal) 1 - 2 sprays NA PRN PRN PRN Reason: Nasal Dryness/Congestion Stop: 07/24/19 19:11 Vitamin D (Vitamin D3) 800 units PO QAM CARLOS Stop: 08/06/19 08:59 Last Admin: 07/08/19 08:57 Dose: 800 units Documented by: Mental Health & Subst Abuse Tx Psychiatrist Name of Psychiatrist: Clark Castellon PA-C Psychiatrist's Date of Appointment with Psychiatrist: 07/26/19 Time of Appointment with Psychiatrist: 1:00 pm Psychiatric Appointment Comment: [id number] [facility] [place] Shock Absorption Floor Layer Name of Shock Absorption Floor Layer: ODESSA Butterfield Phone Number for Shock Absorption Floor Layer: [phone] Date of Appointment with Shock Absorption Floor Layer: 07/20/19 Time of Appointment with Shock Absorption Floor Layer: 1:30 p.m. Case Management Appointment Comment: Will meet with you at home Post Discharge Appointments Primary Care Physician Name Of Family Doctor: [facility] Date of Appointment with PCP: 07/01/19 Time of Appointment with PCP: Please follow up as needed Provider Appointment Comment: [phone], [place] [phone] Contact Information Discharge Discharge Address: [address] [place] [address], [place] [address]
[2019-07-08] MEDS: OLANZAPINE ZYDIS 5 MG ORALLY DIS. TAB PO SCH (21:10)
[2019-07-09] MEDS: LITHIUM CARBONATE 300 MG TAB PO SCH (09:56)
[2019-07-09] MEDS: CHOLECALCIFEROL (VITAMIN D) 400 UNITS TABLET PO SCH (09:56)
--- NOTE | 2019-07-09 10:53 | Discharge Summary ---
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 hospital is deliberately trying to make her symptomatic. -Our assessment is that the patient has responded favorably to olanzapine. We will increase the dose starting this evening to a dose of olanzapine 5 mg in the morning and 10 mg at bedtime. 07/05 --shift Zyprexa to hs dosing to hopefully improve compliance on discharge, patient attributes low energy to it. File for conversion hearing for 304 outpatient commitment. 07/06 -patient is taking medication, but clearly states she does not feel she needs it. She would benefit from a long-acting injectable, but has declined this recommendation. -She has been referred for a BCM and will meet with her tomorrow. 304 IOC is scheduled for Friday. -We recommend she follow-up with an outpatient psychiatrist, and have communicated this to [facility], who has recommended she follow-up with [facility]. 07/07 - Continue medication regimen as above - Meeting with trimming caser scheduled for this afternoon - Continue to coordinate appropriate aftercare plans, as patient will be discharged on a 304 IOC 07/08 -We have communicated our recommendations to [facility] base service unit, including that patient follow-up with an outpatient psychiatrist, given her very limited insight and high risk of nonadherence with outpatient treatment, even on an IOC. We have also communicated our recommendations for follow-up with her therapist, which they will need to find as she does not currently have insurance. She met with her BCM yesterday. 304 IOC hearing scheduled for t omorrow with discharge afterwards. She plans to stay with her parents. -Although patient is taking medications orally here, she has repeatedly stated she does not believe she needs medications. She has refused recommendations for a long-acting injectable antipsychotic, but should continue to explore this option. 07/09 -Patient's lithium level today was 0.4 (subtherapeutic range). She is been taking lithium carbonate 300 mg twice a day for approximately 5 days and today we increased her dose of lithium carbonate to 450 mg twice a day, and we will arrange for the patient to have a follow-up lithium level on 07/13/2019. -The patient continues to voice the belief the treatment team and her family are conspiring to force her into treatment that she neither wants nor needs. However, she is pleasant and repeatedly and independently insists that she will adhere with the treatment because she understands that it is a condition of her being able to live in the community. Although this is not the level of insight we would hope for, given the fact that she has clearly responded favorably to the medications employed it is in our opinion sufficient for the patient to be able to continue her treatment in the community on an outpatient basis. (2) Mood disorder: 07/02 -Patient does demonstrate some degree of emotional lability. However, both her most prominent symptoms remain disorganized thinking and disorganized behaviors. She does tend to make somewhat grandiose statements, but does not harbor grandiose delusional beliefs. Instead, she tends towards paranoia, and, for example, today tells me that she will refuse to use the Internet because of "bad things" that can happen to you if you exposure self to computers." She was also reluctant to sit anywhere near a computer during the interview. The patient is adamant that she does not want additional medications. We suggested the possible addition of an antidepressant, but the patient insists that she is not depressed and only needs "freedom" and "naturalistic treatments." 07/04 as only partial response to antipsychotic and persistent mood symptoms (tearful depression), given history of presumed hypomania, will address bipolar component with lithium. Risks/benefits/alternatives reviewed with the patient and given that it is a natural salt, she agrees to a trial. Reviewed baseline labs, no EKG >45 yo so usually check screening EKG to serve as a baseline but she is too paranoid to do this and starting the trial is in her best interest. EKG can be obtained when less ill. Will start conservatively as paranoid about number of pills with 300 mg lithium BID. 07/05 agreeable to screening EKG today, slight improvement after 1 dose. 07/07 - Continue medication combination of lithium 300mg BID and olanzapine 15mg qHS 07/09 -Patient's lithium level is measured this morning was 0.4. We have discontinued lithium carbonate 300 mg twice daily in favor of extended release lithium 450 mg twice a day. We will also continue olanzapine Zydis 15 mg at bedtime. (3) Auditory hallucinations: 06/25/19 -The patient gives vague responses when ask about perceptual disturbances, but says that she does hear voices that other people do not hearwhile asserting that this is true of everyone, whether or not they realize it. The patient does appear to be responding to internal stimuli and, for example, was observed talking as if to unseen persons by the psychiatrist when he called the patient for the admission examination. -Currently, the patient is saying that she will will refuse all forms of psychiatric medication, other than "[place] peppermint which she can only buy in [place]." The definitive treatment for perceptual disturbances is antipsychotic medications. Within this context, we have ordered aripiprazole 10 mg a day and will titrate as indicated. Medications over objection may need to be ordered given the patient's repeated assertion that she will not agree to take psychiatric medications voluntarily. 06/28 -Patient is refusing to discuss any of her symptoms, has been largely uncooperative since admission. 06/30 -continue attempting to obtain history of symptoms and reality testing as able to 07/02 -The patient reports that she is not experiencing any perceptual disturbances. We remained somewhat suspicious that she may be responding because the patient will periodically stop mid-sentence, stares straight into space for a matter of 10 to 30 seconds, and then make a statement that appears to be unrelated to anything else she had been saying. 07/03-07/07 - no evidence of response to internal stimuli (4) Macrocytic anemia: will add vitamin B 12 and folate level to repeat CBC on next blood draw. Will confirm compliance with lithium before picking a date for lab draw. 07/05 patient agreeable to blood draw today, will supplement as needed. Vit D at request of . 07/09/19 -The patient's B12 level as measured on 07/05/2019 is within normal limits. Mental Health & Subst Abuse Tx Psychiatrist Name of Psychiatrist: Clark Castellon PA-C Psychiatrist's Date of Appointment with Psychiatrist: 07/26/19 Time of Appointment with Psychiatrist: 1:00 pm Psychiatric Appointment Comment: [address] [facility], [place], [place] Therapist Name of Therapist: Mariana Oh Therapist's Date of Therapist Appointment: 07/12/19 Time of Therapist Appointment: 9:30 a.m. Therapy Appointment Comment: [address] [facility], [address], [place] Shale Planer Operator Helper Name of Shale Planer Operator Helper: ODESSA Cortes Julianakul Buttefrield Phone Number for Shale Planer Operator Helper: [phone] Date of Appointment with Shale Planer Operator Helper: 07/16/19 Time of Appointment with Shale Planer Operator Helper: 10am Case Management Appointment Comment: Will meet with you at home Post Discharge Appointments Primary Care Physician Name Of Family Doctor: [facility] Date of Appointment with PCP: 07/01/19 Time of Appointment with PCP: Please follow up as needed Provider Appointment Comment: [address] [facility], [place] [address] Smoking Cessation Counseling Tobacco Cessation Medication Prescribed at Discharge: Not Applicable/Non-Smoker Contact Information Discharge Discharge Address: [address] [place] [address] Discharge Plan Discharge Items Patient Disposition: Home - Self-Care Reason For Visit: PSYCHOSIS NOS Discharge Diagnosis: Schizoaffective Disorder, Bipolar Type Activity: Resume your previous activity Non-emergency contact: Psychiatrist and Surveillance Systems Analyst Call non-emergency contact if: you have any medication questions and your symptoms worsen Follow-up/Referrals: PCP,NO [Primary Care Provider] - Diet: Regular Addtl Attending Provider Instructions: Remember that not everyone with a psychiatric problem is necessarily aware of their symptoms. Continue to take your medications as prescribed, including any changes that your outpatient psychiatrist may make in consultation with you. Pending Studies at Discharge: No Stand-Alone Forms: My [facility], Smoking Cessation, Suicide Prevention Resources Medications and DC Order Prescriptions: New olanzapine 5 mg Tablet,Disintegrating 15 mg PO HS Qty: 30 RF: 0 cholecalciferol (vitamin D3) [Vitamin D3] 10 mcg (400 unit) Tablet 800 unit PO QAM Qty: 60 RF: 0 lithium carbonate 450 mg tablet extended release 450 mg PO BID Qty: 60 RF: 0 No Action No Known Home Medications RF: 0 Discharge Orders: Discharge Order (Routine); Ordered 07/09/19 Ordered By: Hank Quintana/Other Patient Handouts: Stress Causes Effects, Olanzapine Oral tablet, [place] Admission Data Admit Date/Time: 06/24/19 19:13 Attending Provider: Hank Torres Admit Provider: Taryn June Primary Care Provider: PCP,NO Other Interventions: Discharge Summary Assessment (RN) Last Done: 07/09/19 09:16 PSY Interdisciplinary Discharge Planning Last Done: 07/09/19 10:10 [place] [address] D/C day mgmt > 30 min Patient Type Established History Comprehensive Exam Comprehensive Medical Decision Making High Complexity Diagnoses Schizoaffective disorder, bipolar type F25.0 Mood disorder F39 Auditory hallucinations R44.0 Macrocytic anemia D53.9 Time Spent (min) 120 Comment In addition to preparing for discharge, we prepared for involuntary hearing today and participated in the hearing. In addition, we held a fairly lengthy predischarge meeting with the patient together with her parents.
== END 2019-07-09 12:10 | disposition home or self-care (01) | DRG 885 ==
LOC: EDBD → ED 11:39 → MERGE 11:39 → 3S 19:13